=== PATIENT | male | born 1965 | race Caucasian/White ===

== ENCOUNTER → 2023-04-20 13:38 | Outpatient (REF) | payer OTHER, SELFPAY | LOC: HWRAD 13:38 | PROVIDERS: ATTENDING PHYSICIAN Internal Medicine Hematology & Oncology; FAMILY PHYSICIAN Physician Assistant Medical | DX: C18.7 Malignant neoplasm of sigmoid colon (principal); Z51.11 Encounter for antineoplastic chemotherapy | CPT/HCPCS: 71260; 74177; Q9967 ==

== ENCOUNTER → 2023-04-23 15:21 | Outpatient (REF) | payer OTHER, SELFPAY ==
[2023-04-23 13:51] LABS: % Basophils 0.3 % (0-2); % Immature Granulocytes 1.6 % (0-0.5); % Lymphocytes 14.7 % (20.5-51.1); % Monocytes 11.4 % (1.7-9.3); Absolute Eosinophils 0.4 10^3/uL (0-0.7); Absolute Immature Granulocytes 0.1 10^3/uL (0-0.05); Absolute Lymphocytes 1.1 10^3/uL (1.2-3.4); Absolute Monocytes 0.8 10^3/uL (0.1-0.6); Absolute Neutrophils 4.8 10^3/uL (1.4-6.5); Hemoglobin 13.8 g/dL (13.0-18.0); Mean Corp Hgb Conc. 34.5 g/dL (33.0-37.0); Mean Corpuscular Hgb 33.7 pg (27.0-31.0); Mean Corpuscular Volume 97.6 fL (80.0-94.0); Mean Platelet Volume 9.9 fL (7.4-10.4); Platelet Count 114 10^3/uL (130-400); Red Cell Dist. Width 15.2 % (11.5-14.5); White Blood Cell Count 7.3 10^3/uL (4.8-10.8)
== END ==
LOC: OIDL 15:21
PROVIDERS: ATTENDING PHYSICIAN Internal Medicine Hematology & Oncology
DX: C18.7 Malignant neoplasm of sigmoid colon (principal)
CPT/HCPCS: 85025

== ENCOUNTER → 2023-11-02 13:45 | Outpatient (REF) | payer OTHER, SELFPAY ==
[2023-11-02 13:05] LABS: % Basophils 0.5 % (0-2); % Eosinophils 3.1 % (0-6); % Immature Granulocytes 2.3 % (0-0.5); % Lymphocytes 7.9 % (20.5-51.1); % Monocytes 9.8 % (1.7-9.3); % Neutrophils 76.4 % (42.2-75.2); Absolute Eosinophils 0.3 10^3/uL (0-0.7); Absolute Immature Granulocytes 0.2 10^3/uL (0-0.05); Absolute Lymphocytes 0.7 10^3/uL (1.2-3.4); Absolute Monocytes 0.9 10^3/uL (0.1-0.6); Absolute Neutrophils 6.7 10^3/uL (1.4-6.5); Hematocrit 23.4 % (39.0-52.0); Hemoglobin 7.5 g/dL (13.0-18.0); Mean Corp Hgb Conc. 32.1 g/dL (33.0-37.0); Mean Corpuscular Hgb 29.4 pg (27.0-31.0); Mean Corpuscular Volume 91.8 fL (80.0-94.0); Mean Platelet Volume 10.3 fL (7.4-10.4); Nucleated Red Blood Cells % 0 % (-); Platelet Count 317 10^3/uL (130-400); Red Blood Cell Count 2.55 10^6/uL (4.70-6.10); Red Cell Dist. Width 17.6 % (11.5-14.5); White Blood Cell Count 8.8 10^3/uL (4.8-10.8)
[2023-11-02 13:11] LABS: ALT (SGPT) 19 U/L (0-50); AST (SGOT) 38 U/L (17-59); Albumin 3.6 g/dl (3.5-5.0); Alkaline Phosphatase 179 U/L (38-126); Blood Urea Nitrogen 56 mg/dl (9-20); Calcium 9.9 mg/dl (8.4-10.2); Carbon Dioxide 19 mmol/L (22-30); Chloride 104 mmol/L (98-107); Glucose 108 mg/dl (70-99); Sodium 138 mmol/L (135-145); Total Bilirubin 0.8 mg/dl (0.2-1.3); Total Protein 6.9 g/dl (6.3-8.2); eGFR 28.69
== END ==
LOC: OIDL 13:45
PROVIDERS: ATTENDING PHYSICIAN Nurse Practitioner Family
DX: C18.7 Malignant neoplasm of sigmoid colon (principal)
CPT/HCPCS: 80053; 85025; 86850; 86900; 86901; 86920

== ENCOUNTER 2023-11-03 09:13 | Outpatient (RCR) | payer OTHER, SELFPAY ==
[2023-11-03 09:30] VITALS: BP 107/69
[2023-11-03 09:57] VITALS: BP 107/69
[2023-11-03 10:15] VITALS: BP 100/59
[2023-11-03 10:26] LABS: Iron 33 ug/dl (49-181)
[2023-11-03 10:37] LABS: Percent Saturation 15 % (20-50); Total Iron Binding Capacity 213 ug/dl (261-462)
[2023-11-03 11:29] LABS: Folate 9.9 ng/ml (2.76-20)
[2023-11-03 11:46] VITALS: BP 102/64
[2023-11-03 12:33] LABS: Vitamin B12 716 pg/ml (239-931)
== END 2023-11-07 23:59 | disposition home or self-care (01) ==
LOC: OID 09:13
PROVIDERS: ATTENDING PHYSICIAN Internal Medicine Hematology & Oncology; FAMILY PHYSICIAN Physician Assistant Medical
DX: D50.9 Iron deficiency anemia, unspecified (principal); C18.7 Malignant neoplasm of sigmoid colon
CPT/HCPCS: 36430; 82607; 82728; 82746; 83540; 83550; 86850; 86900; 86901; 86920; P9016

== ENCOUNTER → 2023-11-03 12:04 | Outpatient (REF) | payer OTHER, SELFPAY ==
[2023-11-03 12:30] VITALS: BP 103/69; BP_SYST 79
[2023-11-03 14:05] VITALS: BP 106/71; BP_SYST 82
[2023-11-03 14:15] VITALS: BP 114/65; BP_SYST 81
[2023-11-03 15:10] VITALS: BP 114/65
--- NOTE | 2023-11-03 15:14 | PTCARENOTE ---
IRAD note: patient sent to ER per [facility] [employer] Miesha Israel's request for albumin infusion post large volume (8450ml) paracentesis. updated at bedside. Report given to ER Triage nurse Mary Anne.
[2023-11-03 15:18] LABS: Body Fluid Mononuclear 40.8 %; Body Fluid Polymorphonuclear 59.2 %; Body Fluid WBC 1844 /CUMM
[2023-11-03 15:35] LABS: Body Fluid Second Tech LD
== END ==
LOC: RADI 12:04
PROVIDERS: ATTENDING PHYSICIAN Nurse Practitioner Family; FAMILY PHYSICIAN Physician Assistant Medical
DX: R18.8 Other ascites (principal); D50.9 Iron deficiency anemia, unspecified; C18.7 Malignant neoplasm of sigmoid colon; R79.89 Other specified abnormal findings of blood chemistry
CPT/HCPCS: 36430; 49083; 80053; 82607; 82728; 82746; 83540; 83550; 86850; 86900; 86901; 86920; 89051; 96365; 99283; P9016; P9045

== ENCOUNTER 2023-11-03 14:54 | Emergency (ER) | payer OTHER, SELFPAY ==
[2023-11-03 14:59] VITALS: BP 100/54
--- NOTE | 2023-11-03 17:28 | ED.GENMED ---
History of Present Illness
General
Chief Complaint: Abdominal Symptoms
Time Seen by Provider: 11/03/23 16:30
History of Present Illness
History of Present Illness:
58-year-old male with history of colon cancer presenting to the emergency department for albumin infusion. Patient with colon cancer, status post paracentesis today and a blood transfusion. He was supposed to get albumin transfusion, however they
were unable to do so, subsequently sent to the ER for albumin. Patient notes that he feels a little bit shaky, has some generalized discomfort where the injection was at the paracentesis site, otherwise feels well. Denies chest pain, difficulty
breathing, fever. He is going to start chemotherapy tomorrow.
Past History
Past History
ED Past Medical History: None
ED Past Surgical History: None
Social History
Tobacco: Non-smoker
Alcohol: Occasional
Drug: None
Personal:
Living: with family
Phy Exam
Physical Exam
Physical Exam:
General: Well-appearing, no clinical signs of dehydration, nontoxic and in no acute distress
HEENT: protecting airway
Neck: appears supple
CV: Normal heart rate, regular rhythm, no evidence of cyanosis
Resp: No accessory muscle use, no increased work of breathing
Abd: Soft and non-distended, no tenderness to palpation
Extremities: No deformities, no swelling, no erythema
Neuro: alert, no focal neurologic deficit
: deferred
Rectal: deferred
Psych: Normal affect
Skin: Intact
Course
Orders/Labs/Results
Orders:
Orders
11/03/23 17:16
Acetaminophen [Tylenol] 1,000 mg PO NOW STA
Albumin Human 5% 250 ml [Albumin 5%] 12.5 grams in 250 ml IV ONCE
11/03/23 18:22
Comprehensive Metabolic Panel Urgent
Abnormal Lab Results
11/03/23
18:22
Carbon Dioxide 19 L mmol/L
(22-30)
BUN 51 H mg/dl
(9-20)
Creatinine 1.9 H mg/dL
(0.7-1.3)
Glucose 141 H mg/dl
(70-99)
Alkaline Phosphatase 157 H U/L
(38-126)
Total Protein 6.1 L g/dl
(6.3-8.2)
Albumin 3.1 L g/dl
(3.5-5.0)
11/03/23 18:22
Vital Signs
Initial and Last Documented VS:
Initial Vital Signs
Temp Pulse Resp BP Pulse Ox
97.8 F 85 18 100/54 99
11/03/23 14:59 11/03/23 14:59 11/03/23 14:59 11/03/23 14:59 11/03/23 14:59
Last Documented Vital Signs
Temp Pulse Resp BP Pulse Ox
98 F 85 18 100/54 99
11/03/23 16:24 11/03/23 14:59 11/03/23 14:59 11/03/23 14:59 11/03/23 14:59
MDM/Problems Addressed
MDM/Problems Addressed:
58-year-old male with history of colon cancer presenting for albumin infusion, due to start chemotherapy tomorrow. Vital signs are normal.
On exam, patient is well-appearing, no acute distress or discomfort. Patient had a 8.5 L of fluid drained from his abdomen today, ascites. He also had a blood transfusion. Only sent for albumin infusion. Will obtain laboratory analysis and start
albumin. Patient requesting Tylenol. Will administer. Otherwise patient hemodynamically stable.
19:30 -albumin near finish completion. Patient remained stable. Patient has elevated creatinine, however does not appear to be a new finding. Feel stable for discharge with continued outpatient oncologic follow-up. Return precautions discussed.
*Critical Care Note
Total Time (30-74mins, 75-104mins- exclusive of procedures): Not Applicable
ED Attending Note
-
Portions of this chart may have been created with voice recognition software.� Occasional wrong word or��sound alike� substitutions may have occurred due to the inherent limitations of voice recognition software.
Discharge Plan
Departure
Prescriptions:
No Action
finasteride [Propecia] 1 MG tablet
1 mg PO DAILY
gabapentin 300 mg Capsule
300 mg PO DAILY
lisinopril 10 mg Tablet
10 mg PO DAILY
baclofen 5 mg Tablet
5 mg PO DAILY
Referrals:
Rico Ngo MD [Family Provider] -
Interventions
Interventions:
KR-Zjjngl-Navhkkgeys Assessment Last Done: 11/03/23 16:30
Discharge Date and Time
Print Language: MALTESE
[2023-11-03] MEDS: TYLENOL 1000 MG PO (17:35)
[2023-11-03] MEDS: ALBUMIN 5% 250 IV (18:20)
[2023-11-03 18:44] LABS: ALT (SGPT) 16 U/L (0-50); AST (SGOT) 34 U/L (17-59); Albumin 3.1 g/dl (3.5-5.0); Alkaline Phosphatase 157 U/L (38-126); Blood Urea Nitrogen 51 mg/dl (9-20); Carbon Dioxide 19 mmol/L (22-30); Chloride 106 mmol/L (98-107); Glucose 141 mg/dl (70-99); Potassium 4.5 mmol/L (3.5-5.1); Sodium 138 mmol/L (135-145); Total Protein 6.1 g/dl (6.3-8.2); eGFR 39.89
[2023-11-03 19:41] VITALS: BP 112/72
== END 2023-11-03 19:55 | disposition home or self-care (01) ==
LOC: EMR 14:54
PROVIDERS: EMERGENCY PHYSICIAN Student in an Organized Health Care Education/Training Program; FAMILY PHYSICIAN Family Medicine
DX: R79.89 Other specified abnormal findings of blood chemistry (principal); C18.9 Malignant neoplasm of colon, unspecified; R18.8 Other ascites
CPT/HCPCS: 80053; 96365; 99283; P9045

== ENCOUNTER → 2023-11-06 13:50 | Outpatient (REF) | payer OTHER, SELFPAY ==
[2023-11-06 15:16] LABS: % Basophils 0.1 % (0-2); % Immature Granulocytes 0.4 % (0-0.5); % Lymphocytes 3.8 % (20.5-51.1); % Monocytes 3.4 % (1.7-9.3); % Neutrophils 92.3 % (42.2-75.2); Absolute Immature Granulocytes 0.1 10^3/uL (0-0.05); Absolute Lymphocytes 0.5 10^3/uL (1.2-3.4); Absolute Monocytes 0.4 10^3/uL (0.1-0.6); Absolute Neutrophils 11.2 10^3/uL (1.4-6.5); Hematocrit 23.5 % (39.0-52.0); Hemoglobin 7.9 g/dL (13.0-18.0); Mean Corp Hgb Conc. 33.6 g/dL (33.0-37.0); Mean Corpuscular Hgb 29.4 pg (27.0-31.0); Mean Corpuscular Volume 87.4 fL (80.0-94.0); Nucleated Red Blood Cells % 0 % (-); Platelet Count 356 10^3/uL (130-400); Red Blood Cell Count 2.69 10^6/uL (4.70-6.10); White Blood Cell Count 12.1 10^3/uL (4.8-10.8)
[2023-11-06 15:26] LABS: ALT (SGPT) 19 U/L (0-50); AST (SGOT) 33 U/L (17-59); Albumin 3.3 g/dl (3.5-5.0); Alkaline Phosphatase 175 U/L (38-126); Blood Urea Nitrogen 80 mg/dl (9-20); Calcium 8.8 mg/dl (8.4-10.2); Carbon Dioxide 18 mmol/L (22-30); Chloride 102 mmol/L (98-107); Glucose 116 mg/dl (70-99); Potassium 5.3 mmol/L (3.5-5.1); Sodium 137 mmol/L (135-145); Total Bilirubin 0.6 mg/dl (0.2-1.3); Total Protein 6.3 g/dl (6.3-8.2); eGFR 21.34
== END ==
LOC: OIDL 13:50
PROVIDERS: ATTENDING PHYSICIAN Internal Medicine Hematology & Oncology
DX: C18.7 Malignant neoplasm of sigmoid colon (principal); Z51.11 Encounter for antineoplastic chemotherapy; E87.6 Hypokalemia; N39.0 Urinary tract infection, site not specified; C79.51 Secondary malignant neoplasm of bone
CPT/HCPCS: 80053; 85025

== ENCOUNTER 2023-11-08 16:23 | Inpatient (IN) | payer OTHER, SELFPAY ==
[2023-11-08 12:28] VITALS: BP 113/67
[2023-11-08 13:00] VITALS: BMI 26.6
[2023-11-08] MEDS: ZOFRAN 4 MG IV ×4 (13:18→22:21)
[2023-11-08] MEDS: NSS 1000 IV (13:18)
[2023-11-08 13:22] LABS: ALT (SGPT) 15 U/L (0-50); AST (SGOT) 36 U/L (17-59); Albumin 3.1 g/dl (3.5-5.0); Alkaline Phosphatase 175 U/L (38-126); Blood Urea Nitrogen 69 mg/dl (9-20); Calcium 8.6 mg/dl (8.4-10.2); Carbon Dioxide 20 mmol/L (22-30); Chloride 103 mmol/L (98-107); Estimated Creatinine Clearance 44 ml/min; Glucose 116 mg/dl (70-99); Lipase 48 U/L (23-300); Potassium 4.8 mmol/L (3.5-5.1); Sodium 135 mmol/L (135-145); Total Bilirubin 0.8 mg/dl (0.2-1.3); Total Protein 5.9 g/dl (6.3-8.2)
[2023-11-08 13:46] LABS: Hematocrit 22.1 % (39.0-52.0); Hemoglobin 7.3 g/dL (13.0-18.0); Mean Corpuscular Hgb 29.3 pg (27.0-31.0); Mean Corpuscular Volume 88.8 fL (80.0-94.0); Mean Platelet Volume 9.5 fL (7.4-10.4); Platelet Count 179 10^3/uL (130-400); Red Blood Cell Count 2.49 10^6/uL (4.70-6.10); Red Cell Dist. Width 16.1 % (11.5-14.5); White Blood Cell Count 24.4 10^3/uL (4.8-10.8)
--- NOTE | 2023-11-08 13:47 | ED.GENMED ---
History of Present Illness
General
Chief Complaint: Abdominal Symptoms
Source: patient and spouse
Exam Limitations: none
Time Seen by Provider: 11/08/23 12:41
Nursing documentation reviewed up to this point in time: agreed with
History of Present Illness
History of Present Illness:
Patient currently being treated with chemotherapy for metastatic colon cancer, presents to ED secondary to inability to keep anything down over the past 5 days. Denies fever or chills. Denies coughing. Denies diarrhea. Denies rash. Denies
headache. Denies dizziness. Patient has received normal saline infusion after recent chemo treatment, without improvement symptoms.
Past History
Past History
ED Past Medical History: None
ED Past Surgical History: None
Social History
Tobacco: Non-smoker
Alcohol: Occasional
Drug: None
Personal:
Living: with family
Review of Systems
Review of Systems
Allergies reviewed?: Yes
All Other Systems: ROS reviewed and negative except as documented in HPI and ROS
Constitutional: Reports no symptoms; Denies fever or chills
Respiratory: Reports no symptoms; Denies cough
Cardiac: Reports no symptoms; Denies chest pain
ABD/GI: Reports nausea and vomiting; Denies abdominal pain or diarrhea
Skin: Reports no symptoms
Neurological: Reports weakness
Phy Exam
Physical Exam
Physical Exam:
Physical Exam
General: mild distress, not acutely ill. afebrile
Head: nc/at. eomi
Neck: supple. no meningeal signs.
Heart: s1/s2 regular rate and rhythm, no murmur. equal radial pulses.
Lungs: no acute respiratory distress. clear bilaterally
Abdomen: normal bowel sounds. not tender. no distention
Neuro: alert and oriented. no focal neurological deficits
Skin: no rash
Psychiatric: well kept. interactive and cooperative
Extremities: no edema. no calf tenderness.
Course
Orders/Labs/Results
Orders:
Orders
11/08/23 13:03
Complete Blood Count/With Diff Urgent
Comprehensive Metabolic Panel Urgent
Lipase Urgent
Magnesium Urgent
Comment: ADD ON
11/08/23 13:10
Add On- LAB Urgent
Tests Added?: magnesium
0.9% Sodium Chloride 1000 ml [Nss] 1,000 ml IV BOLUS
Ondansetron Injectable [Zofran] 4 mg IV NOW STA
11/08/23 13:50
CR Obstruct Series W/pa Chest Urgent
Comment:
Reason For Exam: vomiting
11/08/23 14:20
Ondansetron Injectable [Zofran] 4 mg .ROUTE .STK-MED ONE
11/08/23 14:21
Ondansetron Injectable [Zofran] 4 mg IV NOW STA
11/08/23 15:37
Electrocardiogram (*1) Urgent
Reason for Study: QTc Monitoring
EKG- Treatment ONCE
Ondansetron Injectable [Zofran] 4 mg IV NOW STA
11/08/23 16:06
Admit/Transfer Patient As Directed
Co-Sign Provider:
Level of Care: Inpatient admission
Assign to:: Medical/Surgical
Physician / Group: Delfino
Transfer to: Medical/Surgical
Diagnosis: HARMONY/Inability to tolerate PO
Reason for Hospitalization: HARMONY/Inability to tolerate PO
Expected length of stay greater than two midnights?: Yes
ELOS- Estimated Length of Stay in days: 2
I certify the patient meets the requirements for IP care: Yes
PRN Pain Medication Management As Directed
May give lesser potent ordered pain med per pt: Yes
preference::
Protocol:: Medication orders for pain may be administered in a
manner that supports deferring to patient preference
when the pt is:
- Requesting an ordered lesser potent pain medication.
Least to most potent pain medications are defined
as: acetaminophen < NSAID < tramadol < opioids
(morphine, oxycodone, hydromorphone).
- Requesting a lesser dose of the same medication IF
ORDERED.
- Requesting a less intrusive route of administration
if both routes are prescribed by the provider (PO <
IV).
11/08/23 16:08
Code Status As Directed
Resuscitation Status: Limited DNR
Limited DNR: -No intubation
11/08/23 16:13
ONCOLOGY CONSULT Routine
Consulting Provider: Meagan Ramsey
Was physician already notified: Yes
Reason for consult: metastatic colon ca
11/08/23 16:18
NEPHROLOGY CONSULT Routine
Consulting Provider: Floyd Black V.
Was physician already notified: Yes
Reason for consult: HARMONY
11/08/23 17:33
Acetaminophen [Tylenol] 650 mg PO Q4HPRN PRN
Albuterol Nebs [Ventolin Nebules] 2.5 mg INH R Q4HPRN PRN
Baclofen [Lioresal] 5 mg PO DAILY PRN
Bisacodyl [Dulcolax] 10 mg RECTAL [id number] PRN
Dextrose 5%/0.45%Sodchl 1000ML [D5/0.45%NaCl] 1,000 ml IV 80 mls/hr
Docusate W/Senna [Senokot-S] 1 tablet PO BIDPRN PRN
Polyethylene Glycol Powder [Miralax] 17 grams PO DAILYPRN PRN
11/08/23 17:33
Respiratory Culture/Gram Stain Urgent
ARSALAN Source: Sputum
Specimen Description:
Activity As Directed
Activity Level: As Tolerated
Intake/ Output As Directed
Frequency: Per unit guidelines
Vital Signs As Directed
Frequency: Per unit guidelines
Weight As Directed
Frequency: Daily
Pt Eval And Treat Routine
Activity Level: As Tolerated
DX Deep Vein Thrombosis Video Routine
11/08/23 18:15
Blood Culture Urgent
ARSALAN Source: Blood/Venous
Specimen Description:
11/08/23 18:35
Urinalysis Reflex To Culture Stat
Date Specimen was Collected: 11/08/23
Time Specimen was Collected: 18:06
Urine Creatinine Urgent
Date Specimen was Collected: 11/08/23
Time Specimen was Collected: 18:07
Urine Osmolality Random [Osmolality, Random Urine] Urgent
Date Specimen was Collected: 11/08/23
Time Specimen was Collected: 18:07
Urine Sodium Routine
Date Specimen was Collected: 11/08/23
Time Specimen was Collected: 18:07
11/08/23 18:56
Blood Culture Routine
ARSALAN Source: Blood/Venous
Specimen Description:
11/08/23 21:46
Ondansetron Injectable [Zofran] 4 mg IV Q6HPRN PRN
11/09/23 Breakfast
Regular
At Your Request: Full Participation
Basic Metabolic Panel IN AM
Complete Blood Count/With Diff IN AM
Ferritin IN AM
Iron IN AM
Magnesium IN AM
Total Iron Binding IN AM
11/09/23 08:00
Calcium Carbonate [Oscal Andrew 500] 500 mg PO DAILY
Heparin 5,000 units SC Q8
Multivitamin [Theragran] 1 tablet PO DAILY
finasteride [Propecia] See Dose Instructions PO DAILY
Abnormal Lab Results
11/08/23
13:03
WBC 24.4 H 10^3/uL
(4.8-10.8)
RBC 2.49 L 10^6/uL
(4.70-6.10)
Hgb 7.3 L g/dL
(13.0-18.0)
Hct 22.1 L %
(39.0-52.0)
RDW 16.1 H %
(11.5-14.5)
Abs Immat Gran (auto) 2.3 H 10^3/uL
(0-0.05)
Absolute Neuts (auto) 21.4 H 10^3/uL
(1.4-6.5)
Absolute Lymphs (auto) 0.5 L 10^3/uL
(1.2-3.4)
Immature Gran % 9.3 H %
(0-0.5)
Neutrophils % 87.5 H %
(42.2-75.2)
Lymphocytes % 1.9 L %
(20.5-51.1)
Monocytes % 0.9 L %
(1.7-9.3)
Carbon Dioxide 20 L mmol/L
(22-30)
BUN 69 H mg/dl
(9-20)
Creatinine 2.0 H mg/dL
(0.7-1.3)
Glucose 116 H mg/dl
(70-99)
Magnesium 2.6 H mg/dl
(1.6-2.3)
Alkaline Phosphatase 175 H U/L
(38-126)
Total Protein 5.9 L g/dl
(6.3-8.2)
Albumin 3.1 L g/dl
(3.5-5.0)
11/08/23 13:03
11/08/23 13:03
Vital Signs
Initial and Last Documented VS:
Initial Vital Signs
Temp Pulse Resp BP Pulse Ox
98.0 F 79 16 113/67 98
11/08/23 12:28 11/08/23 12:28 11/08/23 12:28 11/08/23 12:28 11/08/23 12:28
Last Documented Vital Signs
Temp Pulse Resp BP Pulse Ox
99 F 78 18 110/66 97
11/08/23 23:56 11/08/23 23:56 11/08/23 23:56 11/08/23 23:56 11/08/23 23:56
MDM/Problems Addressed
MDM/Problems Addressed:
Patient with persistent nausea sensation despite treatment, along with clinical concern for significant dehydration, due to poor oral intake, raising possibility of chemo treatment complications. Patient will be admitted for further evaluation and
treatment.
*Critical Care Note
Total Time (30-74mins, 75-104mins- exclusive of procedures): Not Applicable
ED Attending Note
-
Portions of this chart may have been created with voice recognition software.� Occasional wrong word or��sound alike� substitutions may have occurred due to the inherent limitations of voice recognition software.
Discharge Plan
Departure
Patient Disposition: Admit
Date of Disposition: 11/08/23
Time of Disposition: 15:38
Presentation/result/management discussed w/ accepting MD/DO: Hospitalist
Discharge Problem:
Intractable nausea and vomiting, Dehydration
Interventions
Interventions:
*Risk Screen - Suicide Last Done: 11/08/23 16:54
*General Assessment Last Done: 11/08/23 17:33
*Neglect/Abuse Screening Last Done: 11/08/23 16:54
*Nursing Disposition Last Done: 11/08/23 17:33
OK-Gjijuz-Gfmfxgqykp Assessment Last Done: 11/08/23 15:00
Discharge Date and Time
Discharge Date/Time: 11/08/23 17:33
[2023-11-08 14:18] LABS: % Basophils 0.2 % (0-2); % Eosinophils 0.2 % (0-6); % Immature Granulocytes 9.3 % (0-0.5); % Lymphocytes 1.9 % (20.5-51.1); % Monocytes 0.9 % (1.7-9.3); % Neutrophils 87.5 % (42.2-75.2); Absolute Immature Granulocytes 2.3 10^3/uL (0-0.05); Absolute Lymphocytes 0.5 10^3/uL (1.2-3.4); Absolute Monocytes 0.2 10^3/uL (0.1-0.6); Absolute Neutrophils 21.4 10^3/uL (1.4-6.5); Nucleated Red Blood Cells % 0 % (-)
[2023-11-08 14:26] LABS: Magnesium 2.6 mg/dl (1.6-2.3)
[2023-11-08 14:28] VITALS: BP 113/72
--- NOTE | 2023-11-08 15:47 | HPS.HSE ---
Family Physician
-
Family Physician: Eufemia Medina
Chief Complaint
-
Inability to tolerate PO x 5 days
History of Present Illness
58yo M with PMH Metastatic Colon Ca to Lungs and Liver, Anemia, Neuropathy, HTN, Allopecia presents to ER with inability to tolerate PO x 5 days. at bedside aiding in HPI. Pt states he has been feeling weak with complete inability to tolerate
PO. On thursday he was seen in cancer center and given IVF. On Thursday found to be anemic and given 1u PRBC. Pt then received chemotherapy with new agent on Thursday via [facility]. The following day had a paracentesis with 8L drained and short interval ER
evaluation for Albumin infusion. Pt reports mild bloating but no worsening of abd pain. +chills. Also endorses a cough that pt suspects is because he cant clear his mucous. Does report over the last 1 month he has had treatment of UTI completing a
2nd course of abx about 10 days ago (now denies any frequency or dysuria). +dizziness. Denies fever, sick contacts, CP, palps, Wheezing, dysuria, calf or leg pain. Denies bloody or black stools or bloody emesis.
ER course: Pt presents HR 105-.72, other V.S.S. WBC 24.4K, Hgb 7.3 g/dL, BUN/Cr 69/2.0. Obstruction series (-). S/P 4mg IV zofran x 3 and 1LNS bolus in ER.
Medical History
Past Medical History
Past Medical History: Reports Other (Metastatic Colon Colon Ca (lungs, liver), Neuropathy, HTN, Allopecia)
Past Surgical History: Reports Other (Paracentesis, Port placement 07/2020)
Social History
Tobacco: Non-smoker
Alcohol: Occasional (infrequent, social)
Drug: None
Personal:
Living: With Family
Family History
Family History: Other (Mother and Father both in 90s with known history. )
Allergies / Home Medications
Allergies reflects when Allergies were last updated in [facility].
Home Medications with original date entered in [facility]
Allergy/Medication List:
Allergies
Allergy/AdvReac Type Severity Reaction Status Date / Time
No Known Allergies Allergy Verified 11/08/23 12:30
Home Medications
finasteride 1 mg tablet (Propecia) 1 mg PO DAILY HAIR GROWTH 07/03/20
gabapentin 300 mg capsule 600 mg PO BID 11/03/23
lisinopril 10 mg tablet 10 mg PO DAILY 11/03/23
Unknown Nausea Med 1 tab PO PRN PRN nausea 11/08/23
baclofen 5 mg tablet 5 mg PO DAILY PRN Hiccups 11/08/23
calcium carbonate 500 mg PO DAILY 11/08/23
ibuprofen 200 mg tablet (Advil) 400 mg PO Q6HPRN PRN mild pain 11/08/23
therapeutic multivitamin 1 tab PO DAILY 11/08/23
Review of Systems
-
A 12 point ROS was completed and negative except as noted: Yes
Physical Exam
Vital Signs
Vital Signs
Temp Pulse Resp BP Pulse Ox
98.0 F 72 16 113/72 98
11/08/23 12:28 11/08/23 14:28 11/08/23 14:28 11/08/23 14:28 11/08/23 14:28
Physical Exam
General: Well Developed, Well Nourished and No Apparent Distress
HEENT: NormoCephalic, Atraumatic and Other (Dry MM, no evidence of thrush); No Neck Nontender or Neck Mass
Respiratory: Clear
Cardiac: S1/S2, Regular Rhythm and Other (Right CWP ); No Murmur or Rub
GI: Soft, Normal Bowel Sounds and Other (+minimal distention. Mild diffuse ttp, no rebound or guarding. ); No Organomegaly
Rectal: Deferred by Provider
Genito-urinary: No costovertebral tender; No Hilliard
Musculoskeletal: No Clubbing, No Cyanosis and No Edema
Skin: Warm and Dry; No Rash
Neuro: Awake, Alert, Oriented, AO x 3, No Motor Deficits and Nonfocal/grossly intact
Psych: Calm
Laboratory Results
-
11/08/23 13:03
11/08/23 13:03
Laboratory Results
Total Bilirubin 0.8 mg/dl (0.2-1.3) 11/08/23 13:03
AST 36 U/L (17-59) 11/08/23 13:03
ALT 15 U/L (0-50) 11/08/23 13:03
Alkaline Phosphatase 175 U/L (38-126) H 11/08/23 13:03
Lipase 48 U/L (23-300) 11/08/23 13:03
Data Reviewed
-
Diagnostic Radiology: Image Personally Visualized and interpreted
Medical Tests (Nuc Med, Echo, EKG etc): Image Personally Visualized and interpreted
Lab Data: Labs Reviewed by me
Old Records: Reviewed
Impression/Plan
-
Inability to tolerate PO
- Inability to tolerate PO x 5 days with presenting HARMONY/Elevated BUN and recent chemotherapy (thursday)
- Obstruction series (-). LFTs without acute findings. Lipase wnl.
- S/P 1L NS bolus in ER. Will give additional 1L @ 80cc/hr, cautious hydration given recent need for paracentesis
- Supportive care. Antiemetics. Consider megace vs remeron
- Start PPI and observe for improvement
- Consider nutrition consult
- Consult Oncology
HARMONY
- BUN/Cr 69/2.0. Suspect BUN elevation likely contributing to inability to tolerate PO
- Unclear baseline. Cr 1.2 in 03/2023, denies known CKD or nephrology outpt followup
- Check urine studies and obtain US kidneys/bladder
- Bladder scan for completeness
- Suspect pre-renal dehydration. Cautious hydration. Consider change to albumin
- Hold nephrotoxics: NSAIDs/RUBINA-I/Gabapentin. Reports not taking these meds over last few days
Leukocytosis
- WBC 24.4K, afebrile
- Reports recent UTI for which he completed 2 rounds of abx, last 10 days (now denying symptoms)
- Repeat UA wtih reflex
- Obtain BC x 2
- Endorses some coughing, follow up Sputum culture - CXR NAD
- Monitor off abx
- Appreciate oncology recs
Microcytic Anemia
- Hgb 7.3 g/dL. Chronically microcytic. Reports receiving 1u PRBC 11/02
- Recent baseline appearing around 7-8 g/dL
- Denies any bloody or black stools though very limited BMs x 5 days
- Check iron studies
- Likely chemotherapy related
- Goal transfusion > 7.0
- Consult H/O
Metastatic Colon Cancer
- Last chemotherapy received Thursday
- Management per H/o
HTN - Reports not taking lisinopril in recent past.
Neuropathy - Gabapentin held 2/2 HARMONY. Pt reports not taking recently. Resume accordingly.
Allopecia - Cont finasteride.
Diet - Regular, as tolerated.
DVT PPx - Heparin SC
Code Status: Agreeable to CPR but not intubation.
[2023-11-08] MEDS: NSS (PRESERVATIVE FREE) 10 ML IV (17:16)
[2023-11-08] MEDS: PROTONIX IV 40 MG IV (17:16)
[2023-11-08 17:45] VITALS: BP 112/69
[2023-11-08 17:46] VITALS: BMI 26.4
[2023-11-08] MEDS: D5/0.45%NACL 1000 IV (18:21)
--- NOTE | 2023-11-08 18:36 | PTCARENOTE ---
Pt received from ED. Pt ambulated to the room with supervision. Nauseous on arrival, Zofran and Protonix given in ED. IVF started. at the bedside.
[2023-11-08 18:47] LABS: Urine Albumin Trace (Neg - Trace); Urine Bilirubin Negative (Negative); Urine Character Clear (Clear); Urine Color Yellow; Urine Glucose Negative (Negative); Urine Ketone Negative (Negative); Urine Leukocyte Negative (Negative); Urine Nitrite Negative (Negative); Urine Occult Blood 4+ (Negative); Urine Specific Gravity 1.015 (<1.030); Urine Urobilinogen Negative (Neg - 1+)
[2023-11-08 18:52] LABS: Osmolality Urine 474 mOsm/kg (300-900)
[2023-11-08 19:02] LABS: Urine Sodium 13 mmol/L (30-90)
[2023-11-08 19:06] LABS: Urine Bacteria Few (Negative)
[2023-11-08 19:07] LABS: Urine Red Blood Cell 16-20 /HPF (0-2)
[2023-11-08] MEDS: LIORESAL 5 MG PO (20:07)
[2023-11-08 23:56] VITALS: BP 110/66
[2023-11-09] MEDS: ZOFRAN 4 MG IV (05:59)
[2023-11-09 06:00] VITALS: BMI 26.7
--- NOTE | 2023-11-09 06:04 | PTCARENOTE ---
Pt awake intermittently t/o the night. Pt with continued complaints of nausea despite tolerating PO, drinking cups of water without difficulty. Pt denies any complaints of increased abd distention or discomfort. Pt reports just wanting to sleep. Pt
asked for sleeping pill, instructed to ask attending MD this am. Vital signs stable. Will continue to monitor.
[2023-11-09 07:00] VITALS: BP 111/66
[2023-11-09] MEDS: HEPARIN 5000 UNITS SC ×3 (08:49→23:24)
[2023-11-09] MEDS: PROTONIX IV 40 MG IV (08:52)
[2023-11-09] MEDS: NSS (PRESERVATIVE FREE) 10 ML IV (08:52)
[2023-11-09] MEDS: THERAGRAN 1 TABLET PO (08:52)
[2023-11-09] MEDS: OSCAL CAL 500 500 MG PO (08:52)
[2023-11-09] MEDS: LIORESAL 5 MG PO ×2 (09:02→15:23)
[2023-11-09 09:15] VITALS: BP 118/70; BP 121/68; PULSE 71
--- NOTE | 2023-11-09 09:20 | PTOTSP ---
Pt is independent with ambulation without need for any assistive device. No acute PT needs were identified. PT will sign off.
--- NOTE | 2023-11-09 11:06 | W.CON.NEPH ---
Consultation
-
Date/Time Consultation Requested: 11/09/2023 7:00 AM
Date/Time Consultation Performed: 11/09/2023 11:00
Requesting Provider: Dr. Latif
Performing Provider: Dr. Black
Reason for Consultation: Acute kidney injury
Medical History
-
Chief Complaint: Acute kidney injury
History of Present Illness:
The patient is a 58-year-old male with a past medical history of hypertension maintained on lisinopril. He has a history of metastatic colon cancer to lungs liver and spleen. He has significant neuropathy for which she is maintained on gabapentin.
He presented to the emergency room on 11/08/2023 due to the inability to tolerate p.o. over the past 5 days. He reported significant weakness. He also has had worsening anemia and over the past week had received a unit of blood directed at the
[facility]. He also received chemotherapy this past Thursday. The following day he had an 8 L paracentesis followed by albumin infusion. On presentation he reported mild bloating but no worsening of abdominal pain. He did report some
associated chills and cough. Over the past month he has had treatment for UTI and completed a second course of antibiotic therapy approximately 10 days ago. On presentation to the hospital he was noted to have a creatinine level of 2. Previous
review of his lab work revealed a creatinine of 3.2 on November 06, 2023 during his first emergency room visit. An earlier creatinine value was noted to be 1.9 on November 03, 2023. Prior to that his creatinine was noted to be 1.2 as of March 25,
2023. Urinalysis obtained from emergency room notes 4+ blood with trace albuminuria. His fractional excretion of sodium was consistent with a prerenal stimulus. We were consulted for acute kidney injury. He appears to be hemodynamically stable.
The patient admits to taking high doses of ibuprofen daily for his ongoing neuropathy.
Past Medical History
Metastatic colon cancer to lung liver spleen
Neuropathy
Hypertension
Recurrent ascites requiring paracentesis
Chronic kidney disease
Social History
Tobacco: Non-Smoker
Alcohol: Occasional
Family History
No CKD
Allergies / Home Medications
Allergy/AdvReac Type Severity Reaction Status Date / Time
No Known Allergies Allergy Verified 11/08/23 12:30
�Medication �Instructions �Recorded �Confirmed �Type
finasteride 1 mg tablet (Propecia) 1 mg PO DAILY HAIR GROWTH 07/03/20 11/08/23 History
gabapentin 300 mg capsule 600 mg PO BID neuropathy 11/03/23 11/08/23 History
lisinopril 10 mg tablet 10 mg PO DAILY Blood Pressure 11/03/23 11/08/23 History
Unknown Nausea Med 1 tab PO PRN PRN nausea 11/08/23 11/08/23 History
baclofen 5 mg tablet 5 mg PO DAILY PRN Hiccups 11/08/23 11/08/23 History
calcium carbonate 500 mg PO DAILY Supplement 11/08/23 11/08/23 History
ibuprofen 200 mg tablet (Advil) 400 mg PO Q6HPRN PRN mild pain 11/08/23 11/08/23 History
therapeutic multivitamin 1 tab PO DAILY Supplement 11/08/23 11/08/23 History
Review of Systems
-
History Source: Patient
All other systems: Negative unless noted
Constitutional: Fatigue, Chills and Other (Poor appetite)
Respiratory: No Symptoms
Abdomen/GI: Nausea, Vomiting, Anorexia and Other (Ongoing hiccups)
: No Symptoms
Musculoskeletal: No Symptoms
Skin: No Symptoms
Neurological: Other (Baseline neuropathy)
Physical Exam
Vital Signs
Vital Signs
Temp Pulse Resp BP Pulse Ox
98.3 F 79 16 111/66 100
11/09/23 07:00 11/09/23 07:00 11/09/23 07:00 11/09/23 07:00 11/09/23 07:00
Lab Results
eGFR 37.50 11/08/23 13:03
Albumin 3.1 g/dl (3.5-5.0) L 11/08/23 13:03
Physical Exam
General: AOx3, Nontoxic , NAD
HEENT: PERRL, EOMI, Anicteric, Conjunctivae Clear, Ear/Nose Intact, Hearing Normal, Oropharynx Clear/Moist, Dentition Intact, Facial Symmetry, Neck Supple, Neck: Trachea Midline, No JVD and No Thyromegaly, no Bruits
Respiratory: Clear to auscultation bilaterally with normal lung exersion
Cardiac: S1/S2 and Regular Rate/Rhythm
Breast: Deferred by me
Abdomen: Soft, Nontender, abdominal distention normal Bowel Sounds and No Hepatosplenomegalyj
Rectal: Deferred by Provider
Genito-urinary: No Costovertebral Tenderness
Extremities: No Clubbing, No Cyanosis and No Edema
Skin: No Rash or open lesions
Neuro: Nonfocal/Grossly Intact, CN II-XII (Intact) and Strength (Musculoskeletal exam 5 out of 5 both upper and lower extremities)
Hematologic/Lymphatic: No Cervical Lymphadenopathy, No Submandibular Lymphadenopathy and No Supraclavicular Lymphadenopathy
Psych: Mood/affect pleasant, Insight/judgement good and Appropriate
Vascular: plus 2 pedal and radial pulses
Data Reviewed
-
Radiology: Report Reviewed by me (Chest x-ray without evidence of congestive heart failure)
CT Scan: Report Reviewed by me (No obstructive uropathy, moderate bilateral renal disease)
Labs: Labs Reviewed by me ([facility] CBC urinalysis urine sodium urine creatinine)
Old Records: Reviewed (Old records reviewed in electronic medical record creatinine 1.2 as of March 15, 2023)
Assessment/Plan
-
Impression:
Failure to thrive
HARMONY
Metastatic colon cancer: Receiving active chemotherapy
Newly diagnosed bladder mass
Hypertension ( has not been taking lisinopril )
Anemia
Plan:
-FeNa appears consistent with pre renal stimulus
-Likely due to ongoing anemia poor p.o. intake nausea vomiting in setting of NSAID administration
-maintain IVFs
-hold NSAIDs and RUBINA
-no obstructive uropathy by CT
-Will eventually obtain and review chemotherapy regimen which was just initiated last week
[2023-11-09 12:16] LABS: Hematocrit 21.9 % (39.0-52.0); Hemoglobin 7.2 g/dL (13.0-18.0); Mean Corp Hgb Conc. 32.9 g/dL (33.0-37.0); Mean Corpuscular Hgb 29.1 pg (27.0-31.0); Mean Corpuscular Volume 88.7 fL (80.0-94.0); Mean Platelet Volume 9.7 fL (7.4-10.4); Platelet Count 167 10^3/uL (130-400); Red Blood Cell Count 2.47 10^6/uL (4.70-6.10); Red Cell Dist. Width 16.2 % (11.5-14.5); White Blood Cell Count 18.8 10^3/uL (4.8-10.8)
[2023-11-09 12:23] LABS: Blood Urea Nitrogen 51 mg/dl (9-20); Calcium 8.3 mg/dl (8.4-10.2); Carbon Dioxide 19 mmol/L (22-30); Chloride 103 mmol/L (98-107); Estimated Creatinine Clearance 68 ml/min; Glucose 124 mg/dl (70-99); Iron 82 ug/dl (49-181); Magnesium 2.5 mg/dl (1.6-2.3); Potassium 4.7 mmol/L (3.5-5.1); Sodium 133 mmol/L (135-145); eGFR > 60.00
[2023-11-09 12:32] LABS: Percent Saturation 44 % (20-50); Total Iron Binding Capacity 186 ug/dl (261-462)
--- NOTE | 2023-11-09 12:33 | W.PN.HOSP.TC ---
Today's Communication/Plan
-
see bold
Assessment / Plan
Assessment / Plan
Gen: NAD, AAOx3.
Eyes: EOMI, PERRLA, no scleral icterus.
Neck: supple.
CV: RRR, +S1/S2, no m/r/g.
Resp: CTAB, no rales, wheezes, or rhonchi.
Abd: +BS, soft, mild distention, ND
Skin: No rashes.
Neuro: CN 2-12 intact, non-focal.
Psych: Normal mood and affect.
Inability to tolerate PO
- Inability to tolerate PO x 5 days with presenting HARMONY/Elevated BUN and recent chemotherapy (11/04/23)
- Obstruction series (-). LFTs without acute findings. Lipase wnl.
- s/p 1L NS bolus in ER followed by maintenance fluids
- Supportive care. Antiemetics.
- start Remeron 7.5mg HS
- Start PPI and observe for improvement
- Consult Oncology and GI
HARMONY:
-resolved with IVFs
-renal following
-currently on NS with 75meq HCO3-/L @ 100cc/hr
Leukocytosis
- WBC 24.4K, afebrile
- Reports recent UTI for which he completed 2 rounds of abx, last 10 days (now denying symptoms)
- Repeat UA wtih reflex
- Obtain BC x 2
- Endorses some coughing, follow up Sputum culture - CXR NAD
- Monitor off abx
Microcytic Anemia:
-likely due to chemotherapy
-transfuse for Hb < 7
- Hgb 7.3 g/dL. Chronically microcytic. Reports receiving 1u PRBC 11/02
- Recent baseline appearing around 7-8 g/dL
- Denies any bloody or black stools though very limited BMs x 5 days
- Check iron studies
- Likely chemotherapy related
- Goal transfusion > 7.0
- Consult H/O
Metastatic Colon Cancer: Last chemotherapy received 11/04/23.
Essential HTN: Reports not taking lisinopril in recent past.
Neuropathy: Gabapentin held due to HARMONY. Pt reports not taking recently.
Allopecia: Cont finasteride.
Pt's updated extensively at bedside. Case discussed with RN.
DVT PPx - Heparin SC
Code Status: Agreeable to CPR but not intubation.
Total time spent on today's encounter was 50 minutes which included time spent in counseling the patient/family regarding diagnosis and treatment plan as listed above, goals of care, and symptom management. Case was discussed with nursing staff,
specialists, and care coordinators/case management. All labs and imaging personally reviewed by me. Remainder the time spent in detailed review of previous records, lab data, imaging, and other medical provider documentation.
Anticipated Discharge: 24 - 48 hours
Subjective/Interval History
-
Date of Service: November 09, 2023
No new complaints.
Objective Data
-
Labs:
Laboratory Results
11/09/23
11:53
WBC 18.8 H
Hgb 7.2 L
Hct 21.9 L
Plt Count 167
Sodium 133 L
Potassium 4.7
Chloride 103
Carbon Dioxide 19 L
BUN 51 H
Creatinine 1.3
Glucose 124 H
Calcium 8.3 L
Vital Signs:
Vital Signs
Temp Pulse Resp BP Pulse Ox
98.3 F 79 16 111/66 100
11/09/23 07:00 11/09/23 07:00 11/09/23 07:00 11/09/23 07:00 11/09/23 08:10
I&O
11/08/23 11/09/23 11/10/23
06:59 06:59 06:59
Intake Total 2400 / 2400
Output Total 875 / 875
Balance 1525 / 1525
[2023-11-09 12:39] LABS: Absolute Neutrophils -Man Diff 16.1 10^3/uL (1.4-6.5); Band Neutrophils 5 % (0-3); Eosinophils 3 % (0-6); Lymphocytes 8 % (20-51); Metamyelocytes 2 % (-); Myelocytes 1 % (-); Segmented Neutrophils 81 % (42-75)
[2023-11-09 12:40] LABS: Anisocytosis Slight; Hypochromasia 1+; Normal RBC Morphology No; Platelets Checked Yes; Total Cells Counted 100
[2023-11-09] MEDS: SODIUM BICARBONATE 1075 MEQ IV ×2 (12:46→21:57)
[2023-11-09 14:44] VITALS: BMI 26.7
[2023-11-09 15:00] VITALS: BP 119/72
--- NOTE | 2023-11-09 15:58 | W.PN.UPDATE ---
Update Note
Progress Note Update
58 yo man with hx rectal cancer, recently with anastomotic recurrence in setting of indolent low-volume met dz.
He recently completed chemo/RT but was recently found to have progression in lungs, ribs, liver and presumably peritoneum as he required therapeutic paracentesis last week for 8.5L.
He has also been requiring IVF's in the office.
He started FOLFIRI 11/03 with Neulasta 11/05.
His call the service yesterday to report intractable coughing and intolerance of PO's.
Today feeling a bit better but requests increase in anti-reflux meds as symptoms are severe.
A/P:
Met colorectal cancer
Ascites presumed malignant
Chemo-assoc nausea/vomiting
Severe reflux symptoms
Cough with normal CXR and O2 sat, suspect reflux related.
Plan: added H2 germán to PPI. Seems to have adequate anti-emetic regimen.
Full consult to follow.
[2023-11-09] MEDS: PEPCID 40 MG PO ×2 (16:55→20:29)
[2023-11-09 20:44] LABS: Hepatitis C Antibody Negative (Negative)
[2023-11-09] MEDS: REMERON 7.5 MG PO (21:57)
[2023-11-09] MEDS: MELATONIN 5 MG PO (21:57)
--- NOTE | 2023-11-09 22:45 | CON.ONC ---
Impression
Impression
Met colorectal cancer
Ascites presumed malignant
Chemo-assoc nausea/vomiting
Severe reflux symptoms
Cough with normal CXR and O2 sat, suspect reflux related.
Plan
Plan
No evidence of obstruction on obstruction series.
Continue supportive care. Seems to have adequate anti-emetic regimen.
Added H2 germán to PPI.
Gentle IVF's in setting of ascites requiring large-volume paracentesis 11/02.
Thank you for consult, will follow along with you.
Patient History
History of Present Illness
58 yo man with hx rectal cancer, recently with anastomotic recurrence in setting of indolent low-volume met dz. Plan was for chemo/RT followed by resection of anastomotic recurrence. He completed chemo/RT but was then found to have progression in
lungs, ribs, liver and presumably peritoneum as he required therapeutic paracentesis last week for 8.5L on 11/02. Plans for surgery were aborted and he was returned to us for systemic therapy. He started FOLFIRI 11/03 with Neulasta 11/05. His
call the service yesterday to report intractable coughing and intolerance of PO's. Today feeling a bit better but requests increase in anti-reflux meds as symptoms are severe. The reflux is his main complaint today. Tolerating clears. Obstruction
series on admission was unremarkable. O2 sat normal on RA.
Past-Medical/Surgical History
Medical History
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
HTN
Surgical History
Palliative laparoscopy 08/06/21
Port placement 07/2020
Social History
Tobacco: Non-smoker
Alcohol: Occasional (infrequent, social)
Drug: None
Personal:
Living: With Family
Family History
No family hx GI malignancies
Patient Medication
�Medication �Instructions �Recorded �Confirmed �Last Taken �Type
finasteride 1 mg tablet (Propecia) 1 mg PO DAILY HAIR GROWTH 07/03/20 11/08/23 11/03/23 History
gabapentin 300 mg capsule 600 mg PO BID neuropathy 11/03/23 11/08/23 11/03/23 History
lisinopril 10 mg tablet 10 mg PO DAILY Blood Pressure 11/03/23 11/08/23 Unknown History
Unknown Nausea Med 1 tab PO PRN PRN nausea 11/08/23 11/08/23 Unknown History
baclofen 5 mg tablet 5 mg PO DAILY PRN Hiccups 11/08/23 11/08/23 Unknown History
calcium carbonate 500 mg PO DAILY Supplement 11/08/23 11/08/23 Unknown History
ibuprofen 200 mg tablet (Advil) 400 mg PO Q6HPRN PRN mild pain 11/08/23 11/08/23 Unknown History
therapeutic multivitamin 1 tab PO DAILY Supplement 11/08/23 11/08/23 Unknown History
Active Medications
Generic Name Dose Route Start Last Admin
Trade Name Freq PRN Reason Stop Dose Admin
Acetaminophen 650 mg 11/08/23 17:33
Acetaminophen 325 Mg Tablet PO 12/06/23 17:32
Q4HPRN PRN
mild pain/MEHTA/temp> 100.4F
Albuterol Sulfate 2.5 mg 11/08/23 17:33
Albuterol Nebs 2.5 Mg/3 Ml Ampul INH
R Q4HPRN PRN
shortness of breath
Protocol
Baclofen 5 mg 11/09/23 12:55 11/09/23 15:23
Baclofen 5 Mg Tablet PO 12/07/23 12:53 5 mg
TIDPRN PRN Administration
Hiccups
Bisacodyl 10 mg 11/08/23 17:33
Bisacodyl 10 Mg Rectal Suppository RECTAL 12/06/23 17:32
[id number] PRN
constipation
Calcium Carbonate 500 mg 11/09/23 08:00 11/09/23 08:52
Calcium Carbonate 500 Mg Tablet PO 12/07/23 07:59 500 mg
DAILY DINESH Administration
Famotidine 40 mg 11/09/23 16:00 11/09/23 20:29
Famotidine 40 Mg Tablet PO 12/07/23 15:59 40 mg
BID DINESH Administration
Heparin Sodium 5,000 units 11/09/23 08:00 11/09/23 15:23
Heparin 5,000 Units/Ml 1 Ml Vial SC 12/07/23 07:59 5,000 units
Q8 DINESH Administration
Heparin Sodium (Porcine) 500 unit 11/09/23 12:45
Heparin Flush Pf (100 Unit/Ml) 5 Ml Syringe IV 12/07/23 12:44
PER PROTOCOL DINESH
Sodium Bicarbonate 75 meq/ 1,075 mls @ 100 mls/hr 11/09/23 12:00 11/09/23 21:57
Sodium Chloride IV 11/10/23 11:56 1,075 mls
.[id number] DINESH Administration
Melatonin 5 mg 11/09/23 22:00 11/09/23 21:57
Melatonin 5 Mg Tablet PO 12/07/23 21:59 5 mg
HS DINESH Administration
Mirtazapine 7.5 mg 11/09/23 22:00 11/09/23 21:57
Mirtazapine 7.5 Mg Regular Release Tablet PO 12/07/23 21:59 7.5 mg
HS DINESH Administration
Multivitamins Therapeutic 1 tablet 11/09/23 08:00 11/09/23 08:52
Multivitamin Tablet PO 12/07/23 07:59 1 tablet
DAILY DINESH Administration
Finasteride [ 0 mg 11/09/23 08:00
Propecia] 1 Mg PO 12/07/23 07:59
Tablet Po Daily DAILY DINESH
Ondansetron HCl 4 mg 11/08/23 21:46 11/09/23 05:59
Ondansetron 4 Mg/2 Ml Vial IV 12/06/23 21:45 4 mg
Q6HPRN PRN Administration
nausea and vomiting
Pantoprazole Sodium 40 mg 11/10/23 08:00
Pantoprazole 40 Mg Delayed Release Tablet PO 12/08/23 07:59
DAILY DINESH
Polyethylene Glycol 17 grams 11/08/23 17:33
Polyethylene Glycol Powder 17 Grams Packet PO 12/06/23 17:32
DAILYPRN PRN
constipation
Senna/Docusate Sodium 1 tablet 11/08/23 17:33
Docusate W/Senna (Mckenna-Colace) Tablet PO 12/06/23 17:32
BIDPRN PRN
constipation
Sodium Chloride 0 flush 11/08/23 18:00
Sodium Chloride 0.9% (Flush) Syringe IV 12/06/23 17:59
PER PROTOCOL DINESH
Review of Systems
-
History Source: Patient and Records
All Other Systems: Reviewed and Negative
Constitutional: Reports Weight Loss and No Appetite
EENT: Reports No Symptoms
Respiratory: Reports Cough
Cardiac: Reports No Symptoms
GI: Reports Nausea, Vomiting and Other (distention)
Breast: Reports No Symptoms
: Reports No Symptoms
Musculoskeletal: Reports No Symptoms
Skin: Reports No Symptoms
Neuro: Reports No Symptoms
Endocrine: Reports No Symptoms
Hematologic/Lymphatic: Reports No Symptoms
Allergy / Immunology: Reports No Symptoms
Psych: Reports No Symptoms
Physical Exam
-
General: Well Developed, Well Nourished and No Apparent Distress
HEENT: Moist Mucous Membranes; Negative Jaundice
Cardiology: Normal Sinus Rhythm, S1 and S2
Pulmonary: Clear; Negative Wheezes
GI: Soft, Normal Bowel Sounds and Other
Musculoskeletal: No Clubbing, No Cyanosis and No Edema
Extremities: Pulses Present; Negative Phlebitic Signs
Neurology: Non Focal
Skin: Warm and Dry
Hematologic / Lymphatic: No Lymphadenopathy
Psych: Calm and Intact Judgement/Insight
Labs
Lab Results
WBC 18.8 10^3/uL (4.8-10.8) H 11/09/23 11:53
RBC 2.47 10^6/uL (4.70-6.10) L 11/09/23 11:53
Hgb 7.2 g/dL (13.0-18.0) L 11/09/23 11:53
Hct 21.9 % (39.0-52.0) L 11/09/23 11:53
MCV 88.7 fL (80.0-94.0) 11/09/23 11:53
MCH 29.1 pg (27.0-31.0) 11/09/23 11:53
MCHC 32.9 g/dL (33.0-37.0) L 11/09/23 11:53
RDW 16.2 % (11.5-14.5) H 11/09/23 11:53
Plt Count 167 10^3/uL (130-400) 11/09/23 11:53
MPV 9.7 fL (7.4-10.4) 11/09/23 11:53
Abs Immat Gran (auto) 2.3 10^3/uL (0-0.05) H 11/08/23 13:03
Absolute Neuts (auto) 21.4 10^3/uL (1.4-6.5) H 11/08/23 13:03
Absolute Lymphs (auto) 0.5 10^3/uL (1.2-3.4) L 11/08/23 13:03
Absolute Monos (auto) 0.2 10^3/uL (0.1-0.6) 11/08/23 13:03
Absolute Eos (auto) 0.0 10^3/uL (0-0.7) 11/08/23 13:03
Absolute Basos (auto) 0.0 10^3/uL (0-0.2) 11/08/23 13:03
Immature Gran % 9.3 % (0-0.5) H 11/08/23 13:03
Neutrophils % 87.5 % (42.2-75.2) H 11/08/23 13:03
Lymphocytes % 1.9 % (20.5-51.1) L 11/08/23 13:03
Monocytes % 0.9 % (1.7-9.3) L 11/08/23 13:03
Eosinophils % 0.2 % (0-6) 11/08/23 13:03
Basophils % 0.2 % (0-2) 11/08/23 13:03
Creatinine 1.3 mg/dL (0.7-1.3) 11/09/23 11:53
Vital Signs
Vital Signs
Temp Pulse Resp BP Pulse Ox
98.7 F 76 16 119/72 100
11/09/23 15:00 11/09/23 15:00 11/09/23 15:00 11/09/23 15:00 11/09/23 22:30
[2023-11-09 23:22] VITALS: BP 119/73
[2023-11-10 06:00] VITALS: BMI 26.9
[2023-11-10 07:00] VITALS: BP 132/75
[2023-11-10] MEDS: HEPARIN 5000 UNITS SC ×2 (08:46→16:55)
[2023-11-10] MEDS: OSCAL CAL 500 500 MG PO (08:46)
[2023-11-10] MEDS: THERAGRAN 1 TABLET PO (08:46)
[2023-11-10] MEDS: PROTONIX 40 MG PO (08:46)
[2023-11-10] MEDS: PEPCID 40 MG PO ×2 (08:46→21:07)
[2023-11-10] MEDS: SODIUM BICARBONATE 1075 MEQ IV (09:07)
--- NOTE | 2023-11-10 10:26 | W.PN.ONC2 ---
Documented by User: RODRIGO Melgar 11/10/23 11:42
Today's Communication / Plan
-
supportive care
transfuse Hgb <7 or as needed for sxs anemia
Impression
Impression
Met colorectal cancer s/p C1 FOLFIRI 11/03, pegfligrastim 11/05
Ascites presumed malignant s/p large-volume paracentesis 11/02
Chemo-assoc nausea/vomiting
Severe reflux symptoms
Poor PO intake -started mirtazapine
Cough with normal CXR and O2 sat, suspect reflux related
multifactorial Anemia, recent iron studies c/w AOCD, chemotherapy contributing. No folate or b12 deficency. s/p 1unit prbc 11/02
leukocytosis improving s/p pegfilgrastim 11/05, afebrile. Monitor for infection
CIPN on gabepentin
Plan
Plan
No evidence of obstruction on obstruction series.
Continue supportive care. antiemetic prn
continue H2 germán, PPI.
HARMONY management per Nephrology
transfuse Hgb <7 or as needed for sxs anemia
Subjective/Objective
Chief Complaint
using baclofen prn hiccups
on ppi and H2
has not rec'ed ondansetron in 24hr
Subjective
no new complaints
Vital Signs:
Vital Signs
Temp Pulse Resp BP Pulse Ox
98.4 F 83 20 132/75 98
11/10/23 07:00 11/10/23 07:00 11/10/23 07:00 11/10/23 07:00 11/10/23 08:20
Lab Results:
Laboratory Data
WBC 18.8 10^3/uL (4.8-10.8) H 11/09/23 11:53
Hgb 7.2 g/dL (13.0-18.0) L 11/09/23 11:53
Plt Count 167 10^3/uL (130-400) 11/09/23 11:53
eGFR > 60.00 11/09/23 11:53
Physical Exam
General: No Apparent Distress
HEENT: Moist Mucous Membranes; Negative Jaundice
Cardiology: Normal Sinus Rhythm, S1 and S2
Pulmonary: Clear; Negative Wheezes
GI: Soft, distended, ascites
Extremities: no edema
Neurology: Non Focal, speech clear
Skin: Warm and Dry
Review of Systems
Review of Systems
ROS notable for subjective, otherwise negative

Documented by User: Sadaf Duong MD 11/10/23 11:07
Today's Communication / Plan
-
CBC and CMP ordered for this am
No evidence of obstruction on obstruction series.
Continue supportive care. antiemetic prn
continue H2 germán, PPI.
HARMONY management per Nephrology, improved as of yesterday
transfuse Hgb <7 or as needed for sxs anemia
Will need to consider dose adjustments for next chemo cycle
Likely okay for d/c in next day or two
Plan
Plan
CBC and CMP ordered for this am
No evidence of obstruction on obstruction series.
Continue supportive care. antiemetic prn
continue H2 germán, PPI.
HARMONY management per Nephrology, improved as of yesterday
transfuse Hgb <7 or as needed for sxs anemia
Will need to consider dose adjustments for next chemo cycle
Subjective/Objective
Subjective
ate some breakfast
having some loose BMs
feeling a bit stronger
drinking water
using baclofen prn hiccups
on ppi and H2
has not rec'ed ondansetron in 24hr
--- NOTE | 2023-11-10 11:22 | W.PN.HOSP.TC ---
Today's Communication/Plan
-
see bold
Assessment / Plan
Assessment / Plan
Gen: NAD, AAOx3.
Eyes: EOMI, PERRLA, no scleral icterus.
Neck: supple.
CV: remains RRR, +S1/S2, no m/r/g.
Resp: remains CTAB, no rales, wheezes, or rhonchi.
Abd: remains +BS, soft, mild distention, ND
Skin: No rashes.
Neuro: CN 2-12 intact, non-focal.
Psych: Normal mood and affect.
OBST series 11/08/23: No active cardiopulmonary disease. No evidence of acute abdominal pathology.
Inability to tolerate oral intake:
-Inability to tolerate PO x 5 days with presenting HARMONY/Elevated BUN and recent chemotherapy (11/04/23)
-Obstruction series NEG as above. LFTs without acute findings. Lipase wnl.
-s/p 1L NS bolus in ER followed by maintenance fluids which continue
-Supportive care. Antiemetics.
-started Remeron 7.5mg HS
-cont PPI
-ONC following, GI to see
HARMONY:
-resolved with IVFs
-renal following
-currently on NS with 75meq HCO3-/L @ 100cc/hr
Leukocytosis:
-likely reactive
-no evidence of infection at this time
Microcytic Anemia:
-likely due to chemotherapy
-transfuse for Hb < 7
Other problems:
Metastatic Colon Cancer: Last chemotherapy received 11/04/23.
Essential HTN: Reports not taking lisinopril in recent past.
Neuropathy: Gabapentin held due to HARMONY. Pt reports not taking recently.
Allopecia: Cont finasteride.
DVT PPx - Heparin SC
Code Status: Agreeable to CPR but not intubation.
Anticipated Discharge: 24 - 48 hours
Subjective/Interval History
-
Date of Service: November 10, 2023
Pt states he feels better than yesterday. Denies abd pain or nausea.
Objective Data
-
Labs:
Laboratory Results
11/10/23
10:50
WBC Pending
Hgb Pending
Hct Pending
Plt Count Pending
Sodium Pending
Potassium Pending
Chloride Pending
Carbon Dioxide Pending
BUN Pending
Creatinine Pending
Glucose Pending
Calcium Pending
Total Bilirubin Pending
AST Pending
ALT Pending
Alkaline Phosphatase Pending
Vital Signs:
Vital Signs
Temp Pulse Resp BP Pulse Ox
98.4 F 83 20 132/75 98
11/10/23 07:00 11/10/23 07:00 11/10/23 07:00 11/10/23 07:00 11/10/23 08:20
I&O
11/09/23 11/10/23 11/11/23
06:59 06:59 06:59
Intake Total 2400 / 2400 1320 / 1320
Output Total 875 / 875
Balance 1525 / 1525 1320 / 1320
[2023-11-10 12:56] LABS: Hematocrit 21.7 % (39.0-52.0); Hemoglobin 7.1 g/dL (13.0-18.0); Mean Corp Hgb Conc. 32.7 g/dL (33.0-37.0); Mean Corpuscular Hgb 29.3 pg (27.0-31.0); Mean Corpuscular Volume 89.7 fL (80.0-94.0); Mean Platelet Volume 10.1 fL (7.4-10.4); Platelet Count 134 10^3/uL (130-400); Red Blood Cell Count 2.42 10^6/uL (4.70-6.10); Red Cell Dist. Width 16.1 % (11.5-14.5); White Blood Cell Count 5.8 10^3/uL (4.8-10.8)
[2023-11-10 13:13] LABS: ALT (SGPT) 12 U/L (0-50); AST (SGOT) 33 U/L (17-59); Albumin 2.7 g/dl (3.5-5.0); Alkaline Phosphatase 167 U/L (38-126); Blood Urea Nitrogen 34 mg/dl (9-20); Calcium 8.1 mg/dl (8.4-10.2); Carbon Dioxide 23 mmol/L (22-30); Chloride 102 mmol/L (98-107); Estimated Creatinine Clearance 81 ml/min; Glucose 103 mg/dl (70-99); Potassium 4.5 mmol/L (3.5-5.1); Sodium 135 mmol/L (135-145); Total Bilirubin 0.8 mg/dl (0.2-1.3); Total Protein 5.5 g/dl (6.3-8.2); eGFR > 60.00
[2023-11-10 13:27] LABS: Absolute Neutrophils -Man Diff 4.6 10^3/uL (1.4-6.5); Anisocytosis 1+; Band Neutrophils 3 % (0-3); Eosinophils 5 % (0-6); Hypochromasia 1+; Lymphocytes 10 % (20-51); Metamyelocytes 1 % (-); Monocytes 1 % (2-9); Myelocytes 2 % (-); Normal RBC Morphology No; Platelets Checked Yes; Segmented Neutrophils 78 % (42-75); Total Cells Counted 100
--- NOTE | 2023-11-10 13:50 | W.PN.NEPH.PH ---
Today's Communication / Plan
-
follow labs
Assessment/Plan
-
Impression:
Failure to thrive
HARMONY
Metastatic colon cancer: Receiving active chemotherapy Folfiri, Dr Lam
Newly diagnosed bladder mass
Hypertension ( has not been taking lisinopril )
Anemia
Plan:
HARMONY-resolved now cr down to 1.1
follow h/h , prn trasnfusion
BP stable,holding ACEI still
ok to d/c IVF , encourage po intake
will s/o, call wiht ?s
-
-
Date of Service: November 10, 2023
CC / HPI / ROS
-
Chief Complaint:
HARMONY
History of Present Illness:
cr better at 1.1
sodium normal 135
bP stable
Review of Systems:
no cp or sob
no n/v today
no dizziness
Labs
-
Labs:
WBC 5.8 10^3/uL (4.8-10.8) 11/10/23 12:34
RBC 2.42 10^6/uL (4.70-6.10) L 11/10/23 12:34
Hgb 7.1 g/dL (13.0-18.0) L 11/10/23 12:34
Hct 21.7 % (39.0-52.0) L 11/10/23 12:34
Plt Count 134 10^3/uL (130-400) 11/10/23 12:34
Sodium 135 mmol/L (135-145) 11/10/23 12:34
Potassium 4.5 mmol/L (3.5-5.1) 11/10/23 12:34
Chloride 102 mmol/L (98-107) 11/10/23 12:34
Carbon Dioxide 23 mmol/L (22-30) 11/10/23 12:34
BUN 34 mg/dl (9-20) H 11/10/23 12:34
Creatinine 1.1 mg/dL (0.7-1.3) 11/10/23 12:34
eGFR > 60.00 11/10/23 12:34
Glucose 103 mg/dl (70-99) H 11/10/23 12:34
Calcium 8.1 mg/dl (8.4-10.2) L 11/10/23 12:34
Albumin 2.7 g/dl (3.5-5.0) L 11/10/23 12:34
Physical Exam
-
Vital Signs:
Vital Signs
Temp Pulse Resp BP Pulse Ox
98.4 F 83 20 132/75 98
11/10/23 07:00 11/10/23 07:00 11/10/23 07:00 11/10/23 07:00 11/10/23 08:20
Cardiovascular:: Regular rate and rhythm
Respiratory:: Bilateral: CTA
Lung Excursion:: Normal
Abdomen:: Distended, Nontender and Soft
Extremity Edema:: None: Bilateral:
Hilliard Catheter: No
--- NOTE | 2023-11-10 14:12 | CON.GI ---
Consultation
-
Date/Time Consultation Requested: 11/10/23 8am
Date/Time Consultation Performed: 11/10/23 2pm
Requesting Provider: Matthew Latif
Performing Provider: Rick Meeks
Reason for Consultation: Decreased POs
Medical History
Chief Complaint / HPI
Chief Complaint: Decreased POs
History of Present Illness:
58yo male hx rectal CA recently found anastomotic recurrence in setting of indolent low volume metastatic dz. Treated w chemo/XRT with plans for surgery, which were cancelled when found to have progression in lungs, ribs, liver. Had large volume
paracentesis 8.5L on 11/02 at [place]. Last CT end of September at [place]. He started FOLFIRI 11/03 for his disease progression. called with intractable coughing and PO intolerance. Complains of reflux and feeling of regurgitation, even with
talking. Did not notice improvement after LVP.
Past Medical History
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
Past Surgical History: Other (Palliative laparoscopy 08/06/21, Port placement 07/2020)
Social History
Tobacco: Non-Smoker
Alcohol: Occasional
Family History
Family History: Reviewed & Not Pertinent
Allergies / Home Medications
Allergy/AdvReac Type Severity Reaction Status Date / Time
No Known Allergies Allergy Verified 11/08/23 12:30
�Medication �Instructions �Recorded
finasteride 1 mg tablet (Propecia) 1 mg PO DAILY HAIR GROWTH 07/03/20
gabapentin 300 mg capsule 600 mg PO BID neuropathy 11/03/23
lisinopril 10 mg tablet 10 mg PO DAILY Blood Pressure 11/03/23
Unknown Nausea Med 1 tab PO PRN PRN nausea 11/08/23
baclofen 5 mg tablet 5 mg PO DAILY PRN Hiccups 11/08/23
calcium carbonate 500 mg PO DAILY Supplement 11/08/23
ibuprofen 200 mg tablet (Advil) 400 mg PO Q6HPRN PRN mild pain 11/08/23
therapeutic multivitamin 1 tab PO DAILY Supplement 11/08/23
Review of Systems
-
All other systems: A 12 pt ROS was Negative except as stated above in HPI
Vital Signs
Temp Pulse Resp BP Pulse Ox
98.4 F 83 20 132/75 98
11/10/23 07:00 11/10/23 07:00 11/10/23 07:00 11/10/23 07:00 11/10/23 08:20
Physical Exam
Exam
General: No Apparent Distress
HEENT: Normocephalic and Atraumatic
Respiratory: Non Labored Respirations
GI: Soft, Non Tender and Distended (mildly distended)
Skin: Warm and Dry
Results
WBC 5.8 10^3/uL (4.8-10.8) 11/10/23 12:34
Hgb 7.1 g/dL (13.0-18.0) L 11/10/23 12:34
Hct 21.7 % (39.0-52.0) L 11/10/23 12:34
MCV 89.7 fL (80.0-94.0) 11/10/23 12:34
Plt Count 134 10^3/uL (130-400) 11/10/23 12:34
Absolute Neuts (auto) 21.4 10^3/uL (1.4-6.5) H 11/08/23 13:03
Sodium 135 mmol/L (135-145) 11/10/23 12:34
Potassium 4.5 mmol/L (3.5-5.1) 11/10/23 12:34
Chloride 102 mmol/L (98-107) 11/10/23 12:34
Carbon Dioxide 23 mmol/L (22-30) 11/10/23 12:34
BUN 34 mg/dl (9-20) H 11/10/23 12:34
Creatinine 1.1 mg/dL (0.7-1.3) 11/10/23 12:34
Calcium 8.1 mg/dl (8.4-10.2) L 11/10/23 12:34
Total Bilirubin 0.8 mg/dl (0.2-1.3) 11/10/23 12:34
AST 33 U/L (17-59) 11/10/23 12:34
ALT 12 U/L (0-50) 11/10/23 12:34
Alkaline Phosphatase 167 U/L (38-126) H 11/10/23 12:34
Lipase 48 U/L (23-300) 11/08/23 13:03
Hepatitis C Antibody Negative (Negative) 11/09/23 11:53
Diagnostic Image Results:
Prior GI Procedures:
EGD:
Colonoscopy:
Assessment / Plan
-
Summary: 58yo male with hx CRC metastatic at dx in 06/2020 recently with anastomotic recurrence rx'd with chemo/XRT. Following rx, found to have progression in lungs, ribs, liver. Large volume paracentesis 8.5L 11/02. Then started FOLFIRI 11/03 for
his disease progression. called with intractable coughing, intolerance POs. Last CT at [place] end of September. Reports 40#weight loss in last 2 months
Impression:
PO intolerance
Metastatic CRC recently found progression lungs, ribs, liver
s/p FOLFIRI initiation 11/03
Ascites, presumed malignant ascites
Recommendations:
Decreased POs likely due to recent chemo in setting of probable peritoneal carcinomatosis
Request CT report from [facility]
Continue supportive care, encourage POs- small frequent meals
Cont PPI, zofran
-
-
Thank you for consultation and allowing me to participate in the patient's care. Please call the sales operations specialist GI physician during the after hours with any questions or concerns.
--- NOTE | 2023-11-10 14:41 | CM ---
Patient seen at bedside. Per patient he lives with his in a 2 story home and has no DME or past need for VN. Patient stated that he has been independent of ADL's and IADL's. Therapy evaluated today and found no needs.
PCP: Dr. Summers
Pharm: [facility] in [place].
Plan: Discharge to home with no needs.
[2023-11-10 15:00] VITALS: BP 133/70
[2023-11-10] MEDS: REMERON 7.5 MG PO (21:07)
[2023-11-10] MEDS: LIORESAL 5 MG PO (21:07)
[2023-11-10] MEDS: MELATONIN 5 MG PO (21:07)
[2023-11-10 22:36] VITALS: BP 130/73
[2023-11-11] VITALS (9 sets, daily range): BP systolic 105–152; BP diastolic 59–92; BMI 26.8
[2023-11-11] MEDS: HEPARIN 5000 UNITS SC ×4 (00:10→23:10)
[2023-11-11] MEDS: PROTONIX 40 MG PO (09:04)
[2023-11-11] MEDS: OSCAL CAL 500 500 MG PO (09:04)
[2023-11-11] MEDS: PEPCID 40 MG PO ×2 (09:04→20:38)
[2023-11-11] MEDS: THERAGRAN 1 TABLET PO (09:04)
--- NOTE | 2023-11-11 09:04 | PN.CDI ---
CDI
- -
CDI:
Physician Documentation Request
Admit Date: 11/08/23 16:23
Dear Doctor Bhavya,
Please review the following and provide your response in the progress notes.
Clinical Indicators:
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
#Consult >40lb weight loss.
#...experienced majority of 40+lb weight loss over the past 6-8 weeks of chemo,
#...cancer treatments.
#...Very little intake over that time period due to weakness and
#...increased fullness from ascites, complaints of reflux.
#Pt meets criteria for severe protein calorie malnutrition of acute illness
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
#...moderat loss of subcutaneous fat (orbital, tricep) and muscle (calf).
Nephrology, consult, 11/08
#Impression:
#...Failure to thrive
#...HARMONY
Based on the above information and your clinical assessment, which of the following most accurately represents the patient's nutritional status?
Severe Protein Calorie Malnutrition of Acute Illness
Other (please specify)
Myrtle Criteria (ACP Hospitalist 2017)
2 or more criteria must be present for either
non severe or severe malnutrition
Note that the criteria differs related to the
presence of an acute or chronic illness
Acute Illness
Energy Intake Non Severe: <75% for >7 days
Severe: <50% for >5 days
Weight Loss Non Severe: 1-2% over 1 week
5% over 1 month
7.5% over 3 months
1 year N/A
Severe: >2% over 1 week
>5% over 1 month
>7.5% over 3 months
1 year N/A
Body Fat Non Severe: Mild Decrease
Severe: Moderate Decrease
Muscle Mass Non Severe: Mild Decrease
Severe: Moderate Decrease
Use of terms such as suspected, likely, concern for, or probable (associated with a specific diagnosis that is being evaluated, monitored, or treated as if it exists) are acceptable and can be coded in the inpatient setting, when documented at the
time of discharge.
Thank you,
Landy Leal RN BSN CCDS
CDI Specialist
please contact via tiger text
Please use your independent medical judgment in providing your response.
--- NOTE | 2023-11-11 09:24 | W.PN.ONC2 ---
Today's Communication / Plan
-
Thorazine PRN hiccups.
Impression
Impression
Met colorectal cancer s/p C1 FOLFIRI 11/03, pegfligrastim 11/05
Ascites presumed malignant s/p large-volume paracentesis 11/02
Chemo-assoc nausea/vomiting
Severe reflux symptoms
Poor PO intake -started mirtazapine
Cough with normal CXR and O2 sat, suspect reflux related
multifactorial Anemia, recent iron studies c/w AOCD, chemotherapy contributing. No folate or b12 deficency. s/p 1unit prbc 11/02
leukocytosis improving s/p pegfilgrastim 11/05, afebrile. Monitor for infection
CIPN on gabepentin
Plan
Plan
Continue supportive care. antiemetic prn continue H2 germán, PPI.
Thorazine PRN hiccups
Will need to consider dose adjustments for next chemo cycle
Subjective/Objective
Chief Complaint
ACS Heme Onc
Subjective
+ Hiccups.
Vital Signs:
Vital Signs
Temp Pulse Resp BP Pulse Ox
99.7 F 85 20 105/59 97
11/11/23 06:51 11/11/23 06:51 11/11/23 06:51 11/11/23 06:51 11/11/23 06:51
Lab Results:
Laboratory Data
WBC 5.8 10^3/uL (4.8-10.8) 11/10/23 12:34
Hgb 7.1 g/dL (13.0-18.0) L 11/10/23 12:34
Plt Count 134 10^3/uL (130-400) 11/10/23 12:34
eGFR > 60.00 11/10/23 12:34
Physical Exam
HEENT: Other (cachetic)
Cardiology: S1 and S2
Pulmonary: Clear
GI: Soft and Distended
Extremities: No C/C/E
--- NOTE | 2023-11-11 09:40 | W.PN.HOSP.TC ---
Today's Communication/Plan
-
see bold
Assessment / Plan
Assessment / Plan
Gen: NAD, AAOx3.
Eyes: EOMI, PERRLA, no scleral icterus.
Neck: supple.
CV: continues to remain RRR, +S1/S2, no m/r/g.
Resp: continues to remain CTAB, no rales, wheezes, or rhonchi.
Abd: +BS, soft, mild-mod distention, ND
Skin: No rashes.
Neuro: CN 2-12 intact, non-focal.
Psych: Normal mood and affect.
OBST series 11/08/23: No active cardiopulmonary disease. No evidence of acute abdominal pathology.
Inability to tolerate oral intake:
-Inability to tolerate PO x 5 days with presenting HARMONY/Elevated BUN and recent chemotherapy (11/04/23)
-Obstruction series NEG as above. LFTs without acute findings. Lipase wnl.
-s/p 1L NS bolus in ER followed by maintenance fluids
-started on Remeron 7.5mg HS
-cont PPI
-ONC/GI following, supportive care at this time
-thorazine for hiccups
HARMONY and metabolic acidosis:
-resolved with IVFs (NS with 75meq HCO3-/L @ 100cc/hr)
-renal saw in c/s
Leukocytosis:
-likely reactive
-no evidence of infection at this time
-resolved
Microcytic Anemia:
-likely due to chemotherapy
-transfuse 2U pRBCs today
Other problems:
Metastatic Colon Cancer: Last chemotherapy received 11/04/23.
Essential HTN: Reports not taking lisinopril in recent past.
Neuropathy: Gabapentin held due to HARMONY. Pt reports not taking recently.
Allopecia: Cont finasteride.
Severe Protein Calorie Malnutrition of Acute Illness
DVT PPx - Heparin SC
Code Status: Agreeable to CPR but not intubation.
Anticipated Discharge: Within 24 hours
Subjective/Interval History
-
Date of Service: November 11, 2023
c/o hiccups. No abd pain or vomiting.
Objective Data
-
Vital Signs:
Vital Signs
Temp Pulse Resp BP Pulse Ox
99.7 F 85 20 105/59 97
11/11/23 06:51 11/11/23 06:51 11/11/23 06:51 11/11/23 06:51 11/11/23 06:51
I&O
11/10/23 11/11/23 11/12/23
06:59 06:59 06:59
Intake Total 1320 / 1320
Balance 1320 / 1320
[2023-11-11] MEDS: THORAZINE 25 MG PO ×3 (10:28→23:48)
--- NOTE | 2023-11-11 12:21 | W.PN.GI.CBS2 ---
Today's Communication / Plan
-
Agree with ongoing supportive acre and addition of Thorazine for hiccups along with Baclofen. Ongoing supportive care. Would consider Palliative care consult. See rest of plan as outlined below. GI team will sign-off but please re-contact with any
questions or concerns.
Assessment / Plan
-
Summary: 58yo male with hx CRC metastatic at dx in 06/2020 recently with anastomotic recurrence rx'd with chemo/XRT. Following rx, found to have progression in lungs, ribs, liver. Large volume paracentesis 8.5L 11/02. Then started FOLFIRI 11/03 for
his disease progression. Worsening intractable coughing, intolerance POs and hiccups. Last CT at [place] end of September. Reports 40#weight loss in last 2 months
#PO intolerance #Failure to Thrive
#Reflux #Hiccups
#Chemo-associated #Nausea/Vomiting
#Metastatic CRC recently found progression lungs, ribs, liver
#s/p FOLFIRI initiation 11/03
#Ascites, presumed malignant ascites
Recommendations:
- Encourage small, frequent bite-sized meals
- Supplement with Boosts/Ensures as tolerated
- Agree with ongoing IV PPI and Pepcid 40 mg qhs for maximal acid suppression
- Baclofen PRN for hiccups, primary team starting Thorazine PRN as well
- Avoidance of all NSAIDs
- No plans for endoscopic evaluation and agree with ongoing supportive care
- Oncology following, considering adjusting dose during next cycle of chemo
- Recommend Nutrition consult and consider Palliative care consult this admission
- Rest of care per primary team
GI team will sign-off. Please recontact with any questions or concerns.
Subjective
Subjective
Date of Service: November 11, 2023
No acute events overnight
Still with some ongoing reflux but without any recent nausea/vomiting. Does note worsening hiccups despite Baclofen.
Objective
Data Reviewed
Laboratory Data:
Laboratory Results
11/10/23 12:34
11/10/23 12:34
Laboratory Results
Magnesium 2.5 mg/dl (1.6-2.3) H 11/09/23 11:53
Total Bilirubin 0.8 mg/dl (0.2-1.3) 11/10/23 12:34
AST 33 U/L (17-59) 11/10/23 12:34
ALT 12 U/L (0-50) 11/10/23 12:34
Alkaline Phosphatase 167 U/L (38-126) H 11/10/23 12:34
Lipase 48 U/L (23-300) 11/08/23 13:03
Vital Signs and I&O:
Vital Signs
Temp Pulse Resp BP Pulse Ox
99.7 F 85 20 105/59 97
11/11/23 06:51 11/11/23 06:51 11/11/23 06:51 11/11/23 06:51 11/11/23 06:51
I&O
11/10/23 11/11/23 11/12/23
06:59 06:59 06:59
Intake Total 1320 / 1320
Balance 1320 / 1320
Physical Exam
Physical Exam
HEENT: Anicteric
Cardiology: Normal Sinus Rhythm
Pulmonary: Other (Breathing comfortably on room air)
GI: Distended and Non Tender
Extremities: Warm
Neuro: Non Focal
[2023-11-11] MEDS: LIORESAL 5 MG PO (21:44)
[2023-11-11] MEDS: REMERON 7.5 MG PO (21:44)
[2023-11-11] MEDS: MELATONIN 5 MG PO (21:44)
[2023-11-12 05:16] LABS: Hemoglobin 7.6 g/dL (13.0-18.0); Mean Corp Hgb Conc. 34.5 g/dL (33.0-37.0); Mean Platelet Volume 10.4 fL (7.4-10.4); Platelet Count 108 10^3/uL (130-400); Red Blood Cell Count 2.62 10^6/uL (4.70-6.10); Red Cell Dist. Width 15.9 % (11.5-14.5)
[2023-11-12 05:24] LABS: Blood Urea Nitrogen 25 mg/dl (9-20); Calcium 8.1 mg/dl (8.4-10.2); Carbon Dioxide 21 mmol/L (22-30); Chloride 101 mmol/L (98-107); Estimated Creatinine Clearance 81 ml/min; Glucose 117 mg/dl (70-99); Magnesium 2.1 mg/dl (1.6-2.3); Potassium 3.9 mmol/L (3.5-5.1); Sodium 134 mmol/L (135-145); eGFR > 60.00
[2023-11-12 06:00] VITALS: BMI 27.1
[2023-11-12 06:51] VITALS: BP 108/64
--- NOTE | 2023-11-12 07:30 | CM ---
patient with failure to thrive,started on remeron hs,cont ppi,gi suggested palliative care cs.Plan home with no needs.
[2023-11-12] MEDS: PROTONIX 40 MG PO (08:50)
[2023-11-12] MEDS: HEPARIN 5000 UNITS SC ×2 (08:50→23:07)
[2023-11-12] MEDS: OSCAL CAL 500 500 MG PO (08:50)
[2023-11-12] MEDS: THERAGRAN 1 TABLET PO (08:50)
[2023-11-12] MEDS: PEPCID 40 MG PO ×2 (08:50→21:21)
[2023-11-12] MEDS: THORAZINE 25 MG PO (08:58)
--- NOTE | 2023-11-12 11:10 | W.PN.HOSP.TC ---
Today's Communication/Plan
-
see bold
Assessment / Plan
Assessment / Plan
Gen: NAD, AAOx3, appears chronically ill.
Eyes: EOMI, PERRLA, no scleral icterus.
Neck: supple.
CV: RRR, +S1/S2, no m/r/g.
Resp: CTAB, no rales, wheezes, or rhonchi.
Abd: +BS, soft, mod distention, ND
Skin: No rashes.
Neuro: CN 2-12 intact, non-focal.
Psych: Normal mood and affect.
OBST series 11/08/23: No active cardiopulmonary disease. No evidence of acute abdominal pathology.
Inability to tolerate oral intake:
-Inability to tolerate PO x 5 days with presenting HARMONY/Elevated BUN and recent chemotherapy (11/04/23)
-Obstruction series NEG as above. LFTs without acute findings. Lipase wnl.
-s/p 1L NS bolus in ER followed by maintenance fluids
-started on Remeron 7.5mg HS
-cont PPI
-ONC/GI following, supportive care at this time
-thorazine for hiccups
HARMONY and metabolic acidosis:
-resolved with IVFs (NS with 75meq HCO3-/L @ 100cc/hr)
-renal saw in c/s
Leukocytosis:
-likely reactive
-no evidence of infection at this time
-resolved
Microcytic Anemia:
-likely due to chemotherapy
-s/p 2U pRBCs
Other problems:
Metastatic Colon Cancer: Last chemotherapy received 11/04/23. c/s IR for Dx/Tx paracentesis.
Essential HTN: Reports not taking lisinopril in recent past.
Neuropathy: Gabapentin held due to HARMONY. Pt reports not taking recently.
Allopecia: Cont finasteride.
Severe Protein Calorie Malnutrition of Acute Illness
DVT PPx - Heparin SC
Code Status: Agreeable to CPR but not intubation.
Anticipated Discharge: 24 - 48 hours
Subjective/Interval History
-
Date of Service: November 12, 2023
pt is eating a little more. c/o worsening abdominal 'bloating.'
Objective Data
-
Labs:
Laboratory Results
11/12/23
04:29
WBC 2.0 L*
Hgb 7.6 L
Hct 22.0 L
Plt Count 108 L
Sodium 134 L
Potassium 3.9
Chloride 101
Carbon Dioxide 21 L
BUN 25 H
Creatinine 1.1
Glucose 117 H
Calcium 8.1 L
Vital Signs:
Vital Signs
Temp Pulse Resp BP Pulse Ox
98.1 F 88 22 108/64 96
11/12/23 06:51 11/12/23 06:51 11/12/23 06:51 11/12/23 06:51 11/12/23 06:51
I&O
11/11/23 11/12/23 11/13/23
06:59 06:59 06:59
Intake Total 2420 / 2420
Balance 2420 / 2420
[2023-11-12 15:12] VITALS: BP 128/78
[2023-11-12 15:50] VITALS: BP 123/83; BP_SYST 92
[2023-11-12 16:54] VITALS: BP 117/76
[2023-11-12] MEDS: HEPARIN SC (17:10)
[2023-11-12 17:25] LABS: Body Fluid Mononuclear 58.3 %; Body Fluid Polymorphonuclear 41.7 %; Body Fluid WBC 489 /CUMM
[2023-11-12 17:36] LABS: Body Fluid Second Tech LD
[2023-11-12 17:37] LABS: Body Fluid LDH 274 U/L
--- NOTE | 2023-11-12 19:20 | W.PN.ONC2 ---
Today's Communication / Plan
-
Improving tolerance of PO's.
Continue supportive care seems ready for D/C soon.
Impression
Impression
Met colorectal cancer s/p C1 FOLFIRI 11/03, pegfligrastim 11/05
Ascites presumed malignant s/p large-volume paracentesis 11/02
Chemo-assoc nausea/vomiting
Severe reflux symptoms
Poor PO intake -started mirtazapine
Cough with normal CXR and O2 sat, suspect reflux related
multifactorial Anemia, recent iron studies c/w AOCD, chemotherapy contributing. No folate or b12 deficency. s/p 1unit prbc 11/02
leukocytosis improving s/p pegfilgrastim 11/05, afebrile. Monitor for infection
CIPN on gabepentin
Plan
Plan
Continue supportive care. antiemetic prn continue H2 germán, PPI.
Thorazine PRN hiccups
Will need to consider dose adjustments for next chemo cycle
Suggest addition of bevacizumab to FOLFIRI to help control ascites
Provided encouragement to pt that treatment should be better tolerated once he begins to respond
Suggest consideration of medical marijuana certification
Subjective/Objective
Chief Complaint
Heme/Onco follow up of met colorectal cancer and chemo-enteritis
Subjective
Tolerate grilled cheese today. Heartburn improved with paracentesis.
Vital Signs:
Vital Signs
Temp Pulse Resp BP Pulse Ox
97.9 F 91 16 117/76 100
11/12/23 15:50 11/12/23 16:54 11/12/23 16:54 11/12/23 16:54 11/12/23 15:50
Lab Results:
Laboratory Data
WBC 2.0 10^3/uL (4.8-10.8) L* 11/12/23 04:29
Hgb 7.6 g/dL (13.0-18.0) L 11/12/23 04:29
Plt Count 108 10^3/uL (130-400) L 11/12/23 04:29
eGFR > 60.00 11/12/23 04:29
Physical Exam
Awake, alert, non-toxic appearing
[2023-11-12 23:00] VITALS: BP 105/63
[2023-11-12] MEDS: MELATONIN 5 MG PO (23:06)
[2023-11-12] MEDS: REMERON 7.5 MG PO (23:07)
[2023-11-13 06:00] VITALS: BMI 25.8
[2023-11-13 07:30] VITALS: BP 126/81
[2023-11-13 08:00] VITALS: BP 126/81
[2023-11-13] MEDS: PROTONIX 40 MG PO (08:35)
[2023-11-13] MEDS: PEPCID 40 MG PO (08:35)
[2023-11-13] MEDS: OSCAL CAL 500 500 MG PO (08:35)
[2023-11-13] MEDS: THORAZINE 25 MG PO (08:38)
[2023-11-13] MEDS: HEPARIN 5000 UNITS SC (08:38)
[2023-11-13] MEDS: THERAGRAN 1 TABLET PO (09:28)
--- NOTE | 2023-11-13 12:12 | W.PN.HOSP.TC ---
Today's Communication/Plan
-
d/c
Assessment / Plan
Assessment / Plan
Gen: NAD, AAOx3, appears chronically ill.
Eyes: EOMI, PERRLA, no scleral icterus.
Neck: supple.
CV: Remains RRR, +S1/S2, no m/r/g.
Resp: Remains CTAB, no rales, wheezes, or rhonchi.
Abd: +BS, soft, mild distention, ND
Skin: No rashes.
Neuro: CN 2-12 intact, non-focal.
Psych: Normal mood and affect.
OBST series 11/08/23: No active cardiopulmonary disease. No evidence of acute abdominal pathology.
Inability to tolerate oral intake:
-Inability to tolerate PO x 5 days with presenting HARMONY/Elevated BUN and recent chemotherapy (11/04/23)
-Obstruction series NEG as above. LFTs without acute findings. Lipase wnl.
-s/p 1L NS bolus in ER followed by maintenance fluids
-started on Remeron 7.5mg HS
-cont PPI
-ONC/GI following, supportive care at this time
-thorazine for hiccups
HARMONY and metabolic acidosis:
-resolved with IVFs (NS with 75meq HCO3-/L @ 100cc/hr)
-renal saw in c/s
Leukocytosis:
-likely reactive
-no evidence of infection at this time
-resolved, now leukopenic due to chemotherapy
Microcytic Anemia:
-likely due to chemotherapy
-s/p 2U pRBCs
Other problems:
Metastatic Colon Cancer: Last chemotherapy received 11/04/23. s/p Tx paracentesis for 4650cc on 11/12/23.
Essential HTN: Reports not taking lisinopril in recent past.
Neuropathy: Gabapentin held due to HARMONY. Pt reports not taking recently.
Allopecia: Cont finasteride.
Severe Protein Calorie Malnutrition of Acute Illness
DVT PPx - Heparin SC
Code Status: Agreeable to CPR but not intubation.
Case discussed with Dr. Desai and the pt is medically cleared for d/c..
Pt's updated at bedside.
Total time spent on d/c = 40 min. This included today's physical exam, progress note, review of laboratory and diagnostic data, preparation of discharge documents and prescriptions, and discussions about the pt's hospital course and discharge plan
with the patient and other emergency medical service manager involved in the patient's care.
Anticipated Discharge: Today
Subjective/Interval History
-
Date of Service: November 13, 2023
No new complaints.
Objective Data
-
Vital Signs:
Vital Signs
Temp Pulse Resp BP Pulse Ox
97.5 F 81 20 126/81 99
11/13/23 07:30 11/13/23 07:30 11/13/23 07:30 11/13/23 07:30 11/13/23 07:30
I&O
11/12/23 11/13/23 11/14/23
06:59 06:59 06:59
Intake Total 2420 / 2420 600 / 600
Balance 2420 / 2420 600 / 600
[2023-11-13 12:50] LABS: Hematocrit 25.1 % (39.0-52.0); Hemoglobin 8.7 g/dL (13.0-18.0); Mean Corp Hgb Conc. 34.7 g/dL (33.0-37.0); Mean Corpuscular Hgb 29.8 pg (27.0-31.0); Mean Platelet Volume 10.4 fL (7.4-10.4); Platelet Count 141 10^3/uL (130-400); Red Blood Cell Count 2.92 10^6/uL (4.70-6.10); Red Cell Dist. Width 15.7 % (11.5-14.5); White Blood Cell Count 1.5 10^3/uL (4.8-10.8)
--- NOTE | 2023-11-13 12:56 | W.PN.ONC2 ---
Today's Communication / Plan
-
Improving tolerance of PO's.
Continue supportive care seems ready for D/C soon.
OP follow up upon discharge will be arranged
Impression
Impression
Met colorectal cancer s/p C1 FOLFIRI 11/03, pegfligrastim 11/05
Ascites presumed malignant s/p large-volume paracentesis 11/02
Chemo-assoc nausea/vomiting
Severe reflux symptoms
Poor PO intake -started mirtazapine
Cough with normal CXR and O2 sat, suspect reflux related
multifactorial Anemia, recent iron studies c/w AOCD, chemotherapy contributing. No folate or b12 deficency. s/p 1unit prbc 11/02
leukocytosis improving s/p pegfilgrastim 11/05, afebrile. Monitor for infection
CIPN on gabepentin
Plan
Plan
Continue supportive care. antiemetic prn continue H2 germán, PPI.
Thorazine PRN hiccups
Will need to consider dose adjustments for next chemo cycle
Suggest addition of bevacizumab to FOLFIRI to help control ascites
Provided encouragement to pt that treatment should be better tolerated once he begins to respond
Suggest consideration of medical marijuana certification
Subjective/Objective
Chief Complaint
no new complaints
eager for discharge
Subjective
feeling better
Vital Signs:
Vital Signs
Temp Pulse Resp BP Pulse Ox
97.5 F 81 20 126/81 99
11/13/23 07:30 11/13/23 07:30 11/13/23 07:30 11/13/23 07:30 11/13/23 08:40
Lab Results:
Laboratory Data
WBC 1.5 10^3/uL (4.8-10.8) L* 11/13/23 12:32
Hgb 8.7 g/dL (13.0-18.0) L 11/13/23 12:32
Plt Count 141 10^3/uL (130-400) D 11/13/23 12:32
eGFR > 60.00 11/12/23 04:29
Physical Exam
HEENT: Moist Mucous Membranes; No Jaundice
Cardiology: S1 and S2
Pulmonary: Clear
GI: Soft
Extremities: No Edema
Neuro: Other (speech clear, A&O3)
Review of Systems
Review of Systems
ROS notable for subjective, otherwise negative
[2023-11-13 13:07] LABS: Blood Urea Nitrogen 19 mg/dl (9-20); Carbon Dioxide 22 mmol/L (22-30); Chloride 98 mmol/L (98-107); Estimated Creatinine Clearance 89 ml/min; Glucose 120 mg/dl (70-99); Sodium 130 mmol/L (135-145); eGFR > 60.00
[2023-11-13 13:46] VITALS: BP 126/73
[2023-11-13 14:23] VITALS: BP 110/75
--- NOTE | 2023-11-13 15:24 | W.DCSUMMARY ---
Discharge Summary
Discharge Data
Date of Admission: 11/08/23
Date of Discharge: 11/13/23
-
Pending Results: No
Hospital Course
Primary diagnoses:
Poor oral intake due to metastatic colon cancer and chemotherapy
Acute kidney injury with metabolic acidosis
Secondary diagnoses:
Leukocytosis followed by leukopenia due to chemotherapy
Microcytic anemia
Essential hypertension
Neuropathy
Allopecia
Severe Protein Calorie Malnutrition of Acute Illness
Consultants:
Oncology
Gastroenterology
Nephrology
Imaging:
OBST series 11/08/23: No active cardiopulmonary disease. No evidence of acute abdominal pathology.
Renal U/S:
1. Moderate chronic bilateral renal disease.
2. No sonographic evidence for hydronephrosis or nephrolithiasis.
3. Moderate diffuse urinary bladder wall thickening.
4. 4.7 cm malignant mass posterior to the urinary bladder.
5. Small volume of upper abdominal ascites.
Hospital course: 58-year-old male who presented with a chief complaint of inability to tolerate oral intake is on the need to be done on admission. He was having significant difficulty with oral intake over the 5 days prior to admission. He
presented with acute kidney injury. He did recently a chemotherapy November 04, 2023. Obstruction series was negative as above. LFTs were unremarkable. Lipase was normal. Renal ultrasound was without hydronephrosis as above. Patient's acute
kidney injury metabolic acidosis resolved with IV fluids containing bicarbonate. Patient's leukocytosis was likely reactive. There is no evidence of infection. The patient's leukocytosis resolved and then he was leukopenic due to chemotherapy.
He did receive 2 units of packed red blood cells for microcytic anemia. Patient was started on Remeron. He was treated supportively. His appetite improved. He also had a therapeutic paracentesis for 4650cc on 11/12/23. The case was discussed with
Dr. Desai and was cleared for discharge. He was discharged in medically stable condition.
Discharge Plan
-
Patient Disposition: Home (Routine Discharge)
Discharge Diagnosis/Procedures: Poor oral intake due to metastatic colon cancer and chemotherapy, therapeutic paracentesis
Condition: Good
Diet: Regular
Activity: As tolerated
Driving Restrictions: As prior to admission
Referrals:
Nadir Valadez, DO [Active] - in two to three days (appointment at 2:15 on 11/16/23)
Eufemia Medina PA-C [Family Provider] -
Prescriptions:
New
famotidine 40 mg Tablet
40 mg PO BID Qty: 60 0RF
pantoprazole 40 mg Tablet,Delayed Release (Dr/Ec)
40 mg PO DAILY Qty: 30 0RF
chlorpromazine 25 mg Tablet
25 mg PO Q6HPRN PRN (Reason: hiccups) Qty: 30 0RF
mirtazapine 7.5 mg Tablet
7.5 mg PO HS Qty: 30 0RF
melatonin 5 mg Tablet
5 mg PO HS Qty: 0 0RF
Continued
finasteride [Propecia] 1 MG tablet
1 mg PO DAILY
therapeutic multivitamin Tablet
1 tab PO DAILY
calcium carbonate 500 mg calcium (1,250 mg) Tablet
500 mg PO DAILY
ibuprofen [Advil] 200 mg Tablet
400 mg PO Q6HPRN PRN (Reason: mild pain)
Unknown Nausea Med
1 tab PO PRN PRN (Reason: nausea)
Patient Comments:
11/08/23: Patient does not know the name of this medication, but says it was prescribed to help with his nausea.
baclofen 5 mg Tablet
5 mg PO DAILY PRN (Reason: Hiccups)
Discontinued
gabapentin 300 mg Capsule
600 mg PO BID
lisinopril 10 mg Tablet
10 mg PO DAILY
Discharge Orders:
Discharge Patient (As Directed); Ordered 11/13/23
Ordered By: Matthew Bhavya
Discharge Date and Time
Discharge Date/Time: 11/13/23 14:50
Print Language: [email or web address]
== END 2023-11-13 14:50 | disposition home or self-care (01) | DRG 682 ==
LOC: 4 EAST ACU 16:23
PROVIDERS: Internal Medicine Hematology & Oncology; Nurse Practitioner Gerontology; Radiology Diagnostic Radiology; ADMITTING PHYSICIAN Internal Medicine; ATTENDING PHYSICIAN Internal Medicine; CONSULT PHYSICIAN Internal Medicine Hematology & Oncology; CONSULT PHYSICIAN Specialist; EMERGENCY PHYSICIAN Emergency Medicine; FAMILY PHYSICIAN Physician Assistant Medical; OTHER PHYSICIAN Specialist
PROC: 30233N1 Transfusion of Nonautologous Red Blood Cells into Peripheral Vein, Percutaneous Approach (ICD-10-PCS; 2023-11-11)
PROC: 0W9G3ZX Drainage of Peritoneal Cavity, Percutaneous Approach, Diagnostic (ICD-10-PCS; 2023-11-12)
DX: N17.9 Acute kidney failure, unspecified (principal); E43 Unspecified severe protein-calorie malnutrition; C19 Malignant neoplasm of rectosigmoid junction; E87.20 Acidosis, unspecified; C79.9 Secondary malignant neoplasm of unspecified site; T45.1X5A Adverse effect of antineoplastic and immunosuppressive drugs, initial encounter; D70.1 Agranulocytosis secondary to cancer chemotherapy; D50.9 Iron deficiency anemia, unspecified; N18.9 Chronic kidney disease, unspecified; I12.9 Hypertensive chronic kidney disease with stage 1 through stage 4 chronic kidney disease, or unspecified chronic kidney disease; Z68.25 Body mass index [BMI] 25.0-25.9, adult
CPT/HCPCS: 49083; 74022; 76770; 80048; 80053; 81003; 81015; 82570; 82728; 83540; 83550; 83615; 83690; 83735; 83935; 84157; 84300; 85025; 85027; 86803; 86850; 86900; 86901; 86920; 87015; 87040; 87070; 87086; 87205; 89051; 93005; 96361; 96374; 96376; 97162; 99285; J7030; P9016

== ENCOUNTER → 2023-11-18 15:53 | Outpatient (REF) | payer OTHER, SELFPAY ==
[2023-11-18 15:09] LABS: % Basophils 0.3 % (0-2); % Eosinophils 1.3 % (0-6); % Immature Granulocytes 15.1 % (0-0.5); % Lymphocytes 7.9 % (20.5-51.1); % Monocytes 8.6 % (1.7-9.3); % Neutrophils 66.8 % (42.2-75.2); Absolute Eosinophils 0.2 10^3/uL (0-0.7); Absolute Immature Granulocytes 2.2 10^3/uL (0-0.05); Absolute Lymphocytes 1.1 10^3/uL (1.2-3.4); Absolute Monocytes 1.2 10^3/uL (0.1-0.6); Absolute Neutrophils 9.7 10^3/uL (1.4-6.5); Hematocrit 26.4 % (39.0-52.0); Hemoglobin 8.6 g/dL (13.0-18.0); Mean Corp Hgb Conc. 32.6 g/dL (33.0-37.0); Mean Corpuscular Hgb 29.3 pg (27.0-31.0); Mean Corpuscular Volume 89.8 fL (80.0-94.0); Mean Platelet Volume 9.8 fL (7.4-10.4); Platelet Count 291 10^3/uL (130-400); Red Blood Cell Count 2.94 10^6/uL (4.70-6.10); Red Cell Dist. Width 17.8 % (11.5-14.5); White Blood Cell Count 14.5 10^3/uL (4.8-10.8)
[2023-11-18 15:59] LABS: ALT (SGPT) 18 U/L (0-50); AST (SGOT) 32 U/L (17-59); Alkaline Phosphatase 232 U/L (38-126); Blood Urea Nitrogen 23 mg/dl (9-20); Calcium 8.5 mg/dl (8.4-10.2); Carbon Dioxide 22 mmol/L (22-30); Chloride 102 mmol/L (98-107); Glucose 108 mg/dl (70-99); Iron 66 ug/dl (49-181); Potassium 3.7 mmol/L (3.5-5.1); Sodium 136 mmol/L (135-145); Total Bilirubin 0.6 mg/dl (0.2-1.3); Total Protein 5.8 g/dl (6.3-8.2); eGFR > 60.00
[2023-11-18 16:08] LABS: Percent Saturation 30 % (20-50); Total Iron Binding Capacity 217 ug/dl (261-462)
[2023-11-18 17:05] LABS: Folate > 20.0 ng/ml (2.76-20); Vitamin B12 > 1000 pg/ml (239-931)
== END ==
LOC: OIDL 15:53
PROVIDERS: ATTENDING PHYSICIAN Internal Medicine Hematology & Oncology
DX: C18.7 Malignant neoplasm of sigmoid colon (principal)
CPT/HCPCS: 80053; 82607; 82728; 82746; 83540; 83550; 85025

== ENCOUNTER → 2023-11-20 12:29 | Outpatient (REF) | payer OTHER, SELFPAY ==
[2023-11-20 13:02] VITALS: BP 126/87; BP_SYST 100
[2023-11-20 14:08] VITALS: BP 119/72
[2023-11-20 15:13] LABS: Body Fluid WBC 724 /CUMM
[2023-11-20 15:14] LABS: Body Fluid Mononuclear 62.5 %; Body Fluid Polymorphonuclear 37.5 %
[2023-11-20 15:15] LABS: Body Fluid Second Tech FB
== END ==
LOC: RADI 12:29
PROVIDERS: ATTENDING PHYSICIAN Nurse Practitioner Family
DX: R18.8 Other ascites (principal)
CPT/HCPCS: 49083; 89051

== ENCOUNTER → 2023-11-23 16:03 | Outpatient (REF) | payer OTHER, SELFPAY ==
[2023-11-23 15:52] LABS: Hematocrit 26.3 % (39.0-52.0); Hemoglobin 8.5 g/dL (13.0-18.0); Mean Corp Hgb Conc. 32.3 g/dL (33.0-37.0); Mean Corpuscular Hgb 28.5 pg (27.0-31.0); Mean Corpuscular Volume 88.3 fL (80.0-94.0); Mean Platelet Volume 9.6 fL (7.4-10.4); Platelet Count 304 10^3/uL (130-400); Red Blood Cell Count 2.98 10^6/uL (4.70-6.10); Red Cell Dist. Width 19.3 % (11.5-14.5); White Blood Cell Count 24.7 10^3/uL (4.8-10.8)
[2023-11-23 15:53] LABS: ALT (SGPT) 17 U/L (0-50); AST (SGOT) 28 U/L (17-59); Albumin 2.8 g/dl (3.5-5.0); Alkaline Phosphatase 185 U/L (38-126); Blood Urea Nitrogen 24 mg/dl (9-20); Calcium 8.7 mg/dl (8.4-10.2); Carbon Dioxide 16 mmol/L (22-30); Chloride 107 mmol/L (98-107); Glucose 86 mg/dl (70-99); Potassium 3.7 mmol/L (3.5-5.1); Sodium 138 mmol/L (135-145); Total Bilirubin 0.4 mg/dl (0.2-1.3); Total Protein 5.5 g/dl (6.3-8.2); eGFR > 60.00
[2023-11-23 17:20] LABS: % Basophils 0.8 % (0-2); % Eosinophils 0.4 % (0-6); % Immature Granulocytes 17.5 % (0-0.5); % Lymphocytes 5.7 % (20.5-51.1); % Monocytes 6.2 % (1.7-9.3); % Neutrophils 69.4 % (42.2-75.2); Absolute Basophils 0.2 10^3/uL (0-0.2); Absolute Eosinophils 0.1 10^3/uL (0-0.7); Absolute Immature Granulocytes 4.3 10^3/uL (0-0.05); Absolute Lymphocytes 1.4 10^3/uL (1.2-3.4); Absolute Monocytes 1.5 10^3/uL (0.1-0.6); Absolute Neutrophils 17.2 10^3/uL (1.4-6.5); Nucleated Red Blood Cells % 0.2 % (-)
== END ==
LOC: OIDL 16:03
PROVIDERS: ATTENDING PHYSICIAN Internal Medicine Hematology & Oncology
DX: C18.7 Malignant neoplasm of sigmoid colon (principal)
CPT/HCPCS: 80053; 85025

== ENCOUNTER → 2023-11-24 11:36 | Outpatient (REF) | payer OTHER, SELFPAY ==
[2023-11-24 11:44] VITALS: BP 115/83; BP_SYST 97
[2023-11-24 12:58] VITALS: BP 118/68; BP_SYST 93
[2023-11-24 13:04] VITALS: BP 118/68
[2023-11-24 13:11] LABS: Body Fluid WBC 824 /CUMM
[2023-11-24 13:57] LABS: Body Fluid Second Tech EF
== END ==
LOC: RADI 11:36
PROVIDERS: ATTENDING PHYSICIAN Internal Medicine Hematology & Oncology
DX: C80.1 Malignant (primary) neoplasm, unspecified (principal); R18.0 Malignant ascites
CPT/HCPCS: 49083; 89051

== ENCOUNTER → 2023-11-30 16:24 | Outpatient (REF) | payer OTHER, SELFPAY ==
[2023-11-30 15:32] LABS: % Basophils 0.2 % (0-2); % Eosinophils 0.1 % (0-6); % Immature Granulocytes 3.2 % (0-0.5); % Lymphocytes 3.1 % (20.5-51.1); % Monocytes 2.8 % (1.7-9.3); % Neutrophils 90.6 % (42.2-75.2); Absolute Basophils 0.1 10^3/uL (0-0.2); Absolute Immature Granulocytes 1.1 10^3/uL (0-0.05); Absolute Monocytes 0.9 10^3/uL (0.1-0.6); Absolute Neutrophils 30.2 10^3/uL (1.4-6.5); Hematocrit 26.3 % (39.0-52.0); Hemoglobin 8.3 g/dL (13.0-18.0); Mean Corp Hgb Conc. 31.6 g/dL (33.0-37.0); Mean Corpuscular Hgb 28.6 pg (27.0-31.0); Mean Corpuscular Volume 90.7 fL (80.0-94.0); Nucleated Red Blood Cells % 0 % (-); Platelet Count 341 10^3/uL (130-400); Red Cell Dist. Width 18.7 % (11.5-14.5); White Blood Cell Count 33.3 10^3/uL (4.8-10.8)
== END ==
LOC: OIDL 16:24
PROVIDERS: ATTENDING PHYSICIAN Internal Medicine Hematology & Oncology
DX: C18.7 Malignant neoplasm of sigmoid colon (principal)
CPT/HCPCS: 85025

== ENCOUNTER → 2023-12-01 10:33 | Outpatient (REF) | payer OTHER, SELFPAY ==
[2023-12-01 10:45] VITALS: BP 129/83; BP_SYST 82
[2023-12-01 11:57] VITALS: BP 113/64; BP_SYST 80
[2023-12-01 14:01] LABS: Body Fluid WBC 963 /CUMM
[2023-12-01 14:03] LABS: Body Fluid Second Tech HB
== END ==
LOC: RADI 10:33
PROVIDERS: ATTENDING PHYSICIAN Internal Medicine Hematology & Oncology
DX: C80.1 Malignant (primary) neoplasm, unspecified (principal); R18.0 Malignant ascites
CPT/HCPCS: 49083; 89051

== ENCOUNTER → 2023-12-02 14:56 | Outpatient (REF) | payer OTHER, SELFPAY ==
[2023-12-02 15:02] LABS: % Basophils 0.2 % (0-2); % Eosinophils 0.1 % (0-6); % Immature Granulocytes 2.3 % (0-0.5); % Monocytes 5.5 % (1.7-9.3); % Neutrophils 87.9 % (42.2-75.2); Absolute Basophils 0.1 10^3/uL (0-0.2); Absolute Immature Granulocytes 0.6 10^3/uL (0-0.05); Absolute Monocytes 1.4 10^3/uL (0.1-0.6); Absolute Neutrophils 22.3 10^3/uL (1.4-6.5); Hematocrit 28.3 % (39.0-52.0); Hemoglobin 8.9 g/dL (13.0-18.0); Mean Corp Hgb Conc. 31.4 g/dL (33.0-37.0); Mean Corpuscular Hgb 29.2 pg (27.0-31.0); Mean Corpuscular Volume 92.8 fL (80.0-94.0); Mean Platelet Volume 9.9 fL (7.4-10.4); Platelet Count 312 10^3/uL (130-400); Red Blood Cell Count 3.05 10^6/uL (4.70-6.10); Red Cell Dist. Width 19.7 % (11.5-14.5); White Blood Cell Count 25.4 10^3/uL (4.8-10.8)
[2023-12-02 16:12] LABS: ALT (SGPT) 36 U/L (0-50); AST (SGOT) 43 U/L (17-59); Alkaline Phosphatase 367 U/L (38-126); Blood Urea Nitrogen 35 mg/dl (9-20); Calcium 8.7 mg/dl (8.4-10.2); Carbon Dioxide 14 mmol/L (22-30); Chloride 107 mmol/L (98-107); Glucose 99 mg/dl (70-99); Potassium 3.8 mmol/L (3.5-5.1); Sodium 138 mmol/L (135-145); Total Bilirubin 0.6 mg/dl (0.2-1.3); Total Protein 5.6 g/dl (6.3-8.2); eGFR > 60.00
== END ==
LOC: OIDL 14:56
PROVIDERS: ATTENDING PHYSICIAN Internal Medicine Hematology & Oncology
DX: C18.7 Malignant neoplasm of sigmoid colon (principal)
CPT/HCPCS: 80053; 85025

== ENCOUNTER → 2023-12-07 14:34 | Outpatient (REF) | payer OTHER, SELFPAY ==
[2023-12-07 19:12] LABS: % Basophils 0.5 % (0-2); % Eosinophils 0.5 % (0-6); % Immature Granulocytes 2.3 % (0-0.5); % Monocytes 5.2 % (1.7-9.3); % Neutrophils 84.5 % (42.2-75.2); Absolute Basophils 0.1 10^3/uL (0-0.2); Absolute Eosinophils 0.1 10^3/uL (0-0.7); Absolute Immature Granulocytes 0.4 10^3/uL (0-0.05); Absolute Lymphocytes 1.1 10^3/uL (1.2-3.4); Absolute Monocytes 0.8 10^3/uL (0.1-0.6); Absolute Neutrophils 13.2 10^3/uL (1.4-6.5); Hematocrit 31.1 % (39.0-52.0); Hemoglobin 9.6 g/dL (13.0-18.0); Mean Corp Hgb Conc. 30.9 g/dL (33.0-37.0); Mean Corpuscular Hgb 30.4 pg (27.0-31.0); Mean Corpuscular Volume 98.4 fL (80.0-94.0); Mean Platelet Volume 11.4 fL (7.4-10.4); Nucleated Red Blood Cells % 0 % (-); Platelet Count 249 10^3/uL (130-400); Red Blood Cell Count 3.16 10^6/uL (4.70-6.10); Red Cell Dist. Width 21.3 % (11.5-14.5); White Blood Cell Count 15.7 10^3/uL (4.8-10.8)
[2023-12-07 19:24] LABS: ALT (SGPT) 24 U/L (0-50); AST (SGOT) 34 U/L (17-59); Albumin 3.2 g/dl (3.5-5.0); Alkaline Phosphatase 311 U/L (38-126); Blood Urea Nitrogen 24 mg/dl (9-20); Calcium 8.8 mg/dl (8.4-10.2); Carbon Dioxide 16 mmol/L (22-30); Chloride 110 mmol/L (98-107); Glucose 58 mg/dl (70-99); Potassium 3.5 mmol/L (3.5-5.1); Sodium 143 mmol/L (135-145); Total Bilirubin 0.5 mg/dl (0.2-1.3); Total Protein 5.9 g/dl (6.3-8.2); eGFR > 60.00
== END ==
LOC: OIDL 14:34
PROVIDERS: ATTENDING PHYSICIAN Internal Medicine Hematology & Oncology
DX: C18.7 Malignant neoplasm of sigmoid colon (principal)
CPT/HCPCS: 36415; 80053; 85025

== ENCOUNTER → 2023-12-08 12:45 | Outpatient (REF) | payer OTHER, SELFPAY ==
[2023-12-08 13:05] VITALS: BP 135/62; BP_SYST 87
[2023-12-08 14:31] VITALS: BP 120/80
[2023-12-08 15:08] LABS: Body Fluid Mononuclear 71.2 %; Body Fluid Polymorphonuclear 28.8 %; Body Fluid WBC 719 /CUMM
[2023-12-08 15:20] LABS: Body Fluid Second Tech DW
== END ==
LOC: RADI 12:45
PROVIDERS: ATTENDING PHYSICIAN Internal Medicine Hematology & Oncology; FAMILY PHYSICIAN Physician Assistant Medical
DX: R18.8 Other ascites (principal)
CPT/HCPCS: 49083; 89051

== ENCOUNTER → 2023-12-21 16:15 | Outpatient (REF) | payer OTHER, SELFPAY ==
[2023-12-21 14:55] LABS: % Basophils 0.6 % (0-2); % Eosinophils 1.8 % (0-6); % Lymphocytes 5.6 % (20.5-51.1); % Monocytes 5.2 % (1.7-9.3); % Neutrophils 84.8 % (42.2-75.2); Absolute Basophils 0.1 10^3/uL (0-0.2); Absolute Eosinophils 0.3 10^3/uL (0-0.7); Absolute Immature Granulocytes 0.4 10^3/uL (0-0.05); Absolute Monocytes 0.9 10^3/uL (0.1-0.6); Absolute Neutrophils 14.8 10^3/uL (1.4-6.5); Hematocrit 32.9 % (39.0-52.0); Hemoglobin 10.4 g/dL (13.0-18.0); Mean Corp Hgb Conc. 31.6 g/dL (33.0-37.0); Mean Corpuscular Hgb 30.6 pg (27.0-31.0); Mean Corpuscular Volume 96.8 fL (80.0-94.0); Mean Platelet Volume 10.6 fL (7.4-10.4); Nucleated Red Blood Cells % 0 % (-); Platelet Count 272 10^3/uL (130-400); Red Cell Dist. Width 20.2 % (11.5-14.5); White Blood Cell Count 17.4 10^3/uL (4.8-10.8)
[2023-12-21 15:10] LABS: ALT (SGPT) 33 U/L (0-50); AST (SGOT) 35 U/L (17-59); Albumin 3.6 g/dl (3.5-5.0); Alkaline Phosphatase 323 U/L (38-126); Blood Urea Nitrogen 14 mg/dl (9-20); Calcium 9.2 mg/dl (8.4-10.2); Carbon Dioxide 16 mmol/L (22-30); Chloride 110 mmol/L (98-107); Glucose 75 mg/dl (70-99); Potassium 3.5 mmol/L (3.5-5.1); Sodium 141 mmol/L (135-145); Total Bilirubin 0.8 mg/dl (0.2-1.3); Total Protein 6.4 g/dl (6.3-8.2); eGFR > 60.00
[2023-12-21 15:24] LABS: Protein/creatinine Ratio 0.7; Urine Protein 60 mg/dl
[2023-12-21 21:50] LABS: CEA 2670 ng/ml
== END ==
LOC: OIDL 16:15
PROVIDERS: ATTENDING PHYSICIAN Internal Medicine Hematology & Oncology
DX: C18.7 Malignant neoplasm of sigmoid colon (principal); Z51.11 Encounter for antineoplastic chemotherapy; E87.6 Hypokalemia; N39.0 Urinary tract infection, site not specified; C79.51 Secondary malignant neoplasm of bone; R18.8 Other ascites; D64.9 Anemia, unspecified; R05.1 Acute cough
CPT/HCPCS: 80053; 82378; 82570; 84156; 85025

== ENCOUNTER → 2023-12-22 08:54 | Outpatient (REF) | payer OTHER, SELFPAY ==
[2023-12-22 09:00] VITALS: BP 125/88; BP_SYST 74
[2023-12-22 09:40] VITALS: BP 123/81; BP_SYST 78
[2023-12-22 10:16] VITALS: BP 123/81
[2023-12-22 11:18] LABS: Body Fluid Mononuclear 67.9 %; Body Fluid Polymorphonuclear 32.1 %; Body Fluid WBC 1019 /CUMM
[2023-12-22 11:31] LABS: Body Fluid Second Tech EF
== END ==
LOC: RADI 08:54
PROVIDERS: ATTENDING PHYSICIAN Internal Medicine Hematology & Oncology; FAMILY PHYSICIAN Physician Assistant Medical
DX: C18.7 Malignant neoplasm of sigmoid colon (principal); R18.0 Malignant ascites
CPT/HCPCS: 49083; 71260; 74177; 89051; Q9967

== ENCOUNTER → 2024-01-04 16:04 | Outpatient (REF) | payer OTHER, SELFPAY ==
[2024-01-04 14:56] LABS: Hematocrit 33.7 % (39.0-52.0); Hemoglobin 10.6 g/dL (13.0-18.0); Mean Corp Hgb Conc. 31.5 g/dL (33.0-37.0); Mean Corpuscular Hgb 29.9 pg (27.0-31.0); Mean Corpuscular Volume 95.2 fL (80.0-94.0); Mean Platelet Volume 10.6 fL (7.4-10.4); Platelet Count 270 10^3/uL (130-400); Red Blood Cell Count 3.54 10^6/uL (4.70-6.10); Red Cell Dist. Width 20.2 % (11.5-14.5)
[2024-01-04 15:13] LABS: % Basophils 0.8 % (0-2); % Eosinophils 1.3 % (0-6); % Lymphocytes 7.3 % (20.5-51.1); % Monocytes 5.4 % (1.7-9.3); % Neutrophils 79.2 % (42.2-75.2); Absolute Basophils 0.1 10^3/uL (0-0.2); Absolute Eosinophils 0.2 10^3/uL (0-0.7); Absolute Immature Granulocytes 0.7 10^3/uL (0-0.05); Absolute Lymphocytes 0.9 10^3/uL (1.2-3.4); Absolute Monocytes 0.7 10^3/uL (0.1-0.6); Absolute Neutrophils 9.5 10^3/uL (1.4-6.5); Nucleated Red Blood Cells % 0 % (-)
[2024-01-04 15:32] LABS: ALT (SGPT) 29 U/L (0-50); AST (SGOT) 28 U/L (17-59); Albumin 3.5 g/dl (3.5-5.0); Alkaline Phosphatase 274 U/L (38-126); Blood Urea Nitrogen 13 mg/dl (9-20); Calcium 7.7 mg/dl (8.4-10.2); Carbon Dioxide 13 mmol/L (22-30); Chloride 114 mmol/L (98-107); Glucose 122 mg/dl (70-99); Potassium 3.4 mmol/L (3.5-5.1); Sodium 142 mmol/L (135-145); Total Bilirubin 0.5 mg/dl (0.2-1.3); Total Protein 6.3 g/dl (6.3-8.2); eGFR > 60.00
== END ==
LOC: OIDL 16:04
PROVIDERS: ATTENDING PHYSICIAN Internal Medicine Hematology & Oncology
DX: C18.7 Malignant neoplasm of sigmoid colon (principal)
CPT/HCPCS: 80053; 85025

== ENCOUNTER → 2024-01-05 08:08 | Outpatient (REF) | payer OTHER, SELFPAY ==
[2024-01-05 09:52] LABS: Body Fluid WBC 621 /CUMM
[2024-01-05 10:19] LABS: Body Fluid Second Tech ASW
== END ==
LOC: RADI 08:08
PROVIDERS: ATTENDING PHYSICIAN Internal Medicine Hematology & Oncology; FAMILY PHYSICIAN Physician Assistant Medical
DX: C80.1 Malignant (primary) neoplasm, unspecified (principal); R18.0 Malignant ascites
CPT/HCPCS: 49083; 89051

== ENCOUNTER 2024-01-18 16:00 | Outpatient (RCR) | payer OTHER, SELFPAY ==
[2024-01-18 14:12] LABS: % Basophils 0.6 % (0-2); % Eosinophils 2.1 % (0-6); % Immature Granulocytes 1.3 % (0-0.5); % Lymphocytes 6.2 % (20.5-51.1); % Monocytes 6.6 % (1.7-9.3); % Neutrophils 83.2 % (42.2-75.2); Absolute Basophils 0.1 10^3/uL (0-0.2); Absolute Eosinophils 0.3 10^3/uL (0-0.7); Absolute Immature Granulocytes 0.2 10^3/uL (0-0.05); Absolute Lymphocytes 0.8 10^3/uL (1.2-3.4); Absolute Monocytes 0.9 10^3/uL (0.1-0.6); Absolute Neutrophils 10.8 10^3/uL (1.4-6.5); Hematocrit 33.7 % (39.0-52.0); Hemoglobin 10.6 g/dL (13.0-18.0); Mean Corp Hgb Conc. 31.5 g/dL (33.0-37.0); Mean Corpuscular Hgb 30.5 pg (27.0-31.0); Mean Corpuscular Volume 96.8 fL (80.0-94.0); Mean Platelet Volume 11.2 fL (7.4-10.4); Nucleated Red Blood Cells % 0 % (-); Platelet Count 208 10^3/uL (130-400); Red Blood Cell Count 3.48 10^6/uL (4.70-6.10); Red Cell Dist. Width 18.7 % (11.5-14.5)
[2024-01-18 14:25] LABS: ALT (SGPT) 33 U/L (0-50); AST (SGOT) 36 U/L (17-59); Albumin 3.3 g/dl (3.5-5.0); Alkaline Phosphatase 272 U/L (38-126); Blood Urea Nitrogen 14 mg/dl (9-20); Calcium 8.6 mg/dl (8.4-10.2); Carbon Dioxide 19 mmol/L (22-30); Chloride 109 mmol/L (98-107); Glucose 98 mg/dl (70-99); Potassium 3.8 mmol/L (3.5-5.1); Sodium 140 mmol/L (135-145); Total Bilirubin 0.7 mg/dl (0.2-1.3); eGFR > 60.00
== END 2024-02-06 23:59 | disposition home or self-care (01) ==
LOC: OID 16:00
PROVIDERS: ATTENDING PHYSICIAN Internal Medicine Hematology & Oncology
DX: C18.7 Malignant neoplasm of sigmoid colon (principal)
CPT/HCPCS: 80053; 85025

== ENCOUNTER → 2024-01-19 12:59 | Outpatient (REF) | payer OTHER, SELFPAY ==
[2024-01-19 13:08] VITALS: BP 120/85; BP_SYST 79
[2024-01-19 13:33] VITALS: BP 117/80; BP_SYST 73
[2024-01-19 13:42] VITALS: BP 117/80
[2024-01-19 14:27] LABS: Body Fluid Mononuclear 68.3 %; Body Fluid Polymorphonuclear 31.7 %; Body Fluid WBC 682 /CUMM
[2024-01-19 14:32] LABS: Body Fluid Second Tech CF
== END ==
LOC: RADI 12:59
PROVIDERS: ATTENDING PHYSICIAN Internal Medicine Hematology & Oncology
DX: R18.8 Other ascites (principal)
CPT/HCPCS: 49083; 89051

== ENCOUNTER → 2024-02-09 10:00 | Outpatient (REF) | payer OTHER, SELFPAY ==
[2024-02-09 10:10] VITALS: BP 124/92; BP_SYST 77
[2024-02-09 11:05] VITALS: BP 123/91
[2024-02-09 12:01] LABS: Body Fluid WBC 543 /CUMM
[2024-02-09 12:05] LABS: % Basophils 0.5 % (0-2); % Eosinophils 3.7 % (0-6); % Immature Granulocytes 1.3 % (0-0.5); % Lymphocytes 5.8 % (20.5-51.1); % Monocytes 7.6 % (1.7-9.3); % Neutrophils 81.1 % (42.2-75.2); Absolute Basophils 0.1 10^3/uL (0-0.2); Absolute Eosinophils 0.5 10^3/uL (0-0.7); Absolute Immature Granulocytes 0.2 10^3/uL (0-0.05); Absolute Lymphocytes 0.8 10^3/uL (1.2-3.4); Hematocrit 36.1 % (39.0-52.0); Hemoglobin 11.3 g/dL (13.0-18.0); Mean Corp Hgb Conc. 31.3 g/dL (33.0-37.0); Mean Corpuscular Volume 99.2 fL (80.0-94.0); Nucleated Red Blood Cells % 0 % (-); Platelet Count 169 10^3/uL (130-400); Red Blood Cell Count 3.64 10^6/uL (4.70-6.10); White Blood Cell Count 13.5 10^3/uL (4.8-10.8)
[2024-02-09 12:07] LABS: Body Fluid Second Tech ASW
[2024-02-09 12:32] LABS: ALT (SGPT) 16 U/L (0-50); AST (SGOT) 26 U/L (17-59); Albumin 3.1 g/dl (3.5-5.0); Alkaline Phosphatase 200 U/L (38-126); Blood Urea Nitrogen 11 mg/dl (9-20); Calcium 7.9 mg/dl (8.4-10.2); Carbon Dioxide 21 mmol/L (22-30); Chloride 110 mmol/L (98-107); Glucose 85 mg/dl (70-99); Potassium 3.8 mmol/L (3.5-5.1); Sodium 143 mmol/L (135-145); Total Bilirubin 0.7 mg/dl (0.2-1.3); eGFR > 60.00
== END ==
LOC: RADI 10:00
PROVIDERS: ATTENDING PHYSICIAN Internal Medicine Hematology & Oncology; FAMILY PHYSICIAN Physician Assistant Medical
DX: C18.7 Malignant neoplasm of sigmoid colon (principal); R18.0 Malignant ascites
CPT/HCPCS: 36415; 49083; 80053; 85025; 89051

== ENCOUNTER → 2024-02-19 09:23 | Outpatient (REF) | payer OTHER, SELFPAY ==
[2024-02-19 09:35] VITALS: BP 131/92; BP_SYST 88
[2024-02-19 10:20] VITALS: BP 111/77; BP_SYST 84
[2024-02-19 10:30] VITALS: BP 111/77
[2024-02-19 11:43] LABS: Body Fluid Mononuclear 59.9 %; Body Fluid Polymorphonuclear 40.1 %; Body Fluid WBC 369 /CUMM
[2024-02-19 12:27] LABS: Body Fluid Second Tech SS
== END ==
LOC: RADI 09:23
PROVIDERS: ATTENDING PHYSICIAN Internal Medicine Hematology & Oncology
DX: R18.8 Other ascites (principal)
CPT/HCPCS: 49083; 89051

== ENCOUNTER → 2024-02-19 15:08 | Outpatient (REF) | payer OTHER, SELFPAY ==
[2024-02-19 12:02] LABS: ALT (SGPT) 21 U/L (0-50); AST (SGOT) 25 U/L (17-59); Albumin 2.7 g/dl (3.5-5.0); Alkaline Phosphatase 252 U/L (38-126); Blood Urea Nitrogen 9 mg/dl (9-20); Calcium 7.3 mg/dl (8.4-10.2); Carbon Dioxide 20 mmol/L (22-30); Chloride 111 mmol/L (98-107); Glucose 91 mg/dl (70-99); Magnesium 2.2 mg/dl (1.6-2.3); Phosphorus 2.4 mg/dl (2.5-4.5); Sodium 138 mmol/L (135-145); Total Bilirubin 0.7 mg/dl (0.2-1.3); Total Protein 5.3 g/dl (6.3-8.2); eGFR > 60.00
== END ==
LOC: OIDL 15:08
PROVIDERS: ATTENDING PHYSICIAN Nurse Practitioner Adult Health
DX: C18.7 Malignant neoplasm of sigmoid colon (principal); Z51.11 Encounter for antineoplastic chemotherapy; E87.6 Hypokalemia; N39.0 Urinary tract infection, site not specified; C79.51 Secondary malignant neoplasm of bone; D64.9 Anemia, unspecified; R18.8 Other ascites; R05.1 Acute cough
CPT/HCPCS: 80053; 83735; 84100

== ENCOUNTER → 2024-02-23 14:51 | Outpatient (REF) | payer OTHER, SELFPAY ==
[2024-02-23 15:32] LABS: % Basophils 0.8 % (0-2); % Eosinophils 3.5 % (0-6); % Immature Granulocytes 1.1 % (0-0.5); % Lymphocytes 5.2 % (20.5-51.1); % Neutrophils 83.4 % (42.2-75.2); Absolute Basophils 0.1 10^3/uL (0-0.2); Absolute Eosinophils 0.5 10^3/uL (0-0.7); Absolute Immature Granulocytes 0.1 10^3/uL (0-0.05); Absolute Lymphocytes 0.7 10^3/uL (1.2-3.4); Absolute Monocytes 0.8 10^3/uL (0.1-0.6); Absolute Neutrophils 10.8 10^3/uL (1.4-6.5); Hematocrit 35.1 % (39.0-52.0); Hemoglobin 10.9 g/dL (13.0-18.0); Mean Corp Hgb Conc. 31.1 g/dL (33.0-37.0); Mean Corpuscular Hgb 29.9 pg (27.0-31.0); Mean Corpuscular Volume 96.4 fL (80.0-94.0); Mean Platelet Volume 10.1 fL (7.4-10.4); Nucleated Red Blood Cells % 0 % (-); Platelet Count 221 10^3/uL (130-400); Red Blood Cell Count 3.64 10^6/uL (4.70-6.10); White Blood Cell Count 12.9 10^3/uL (4.8-10.8)
[2024-02-23 16:00] LABS: ALT (SGPT) 25 U/L (0-50); AST (SGOT) 33 U/L (17-59); Alkaline Phosphatase 267 U/L (38-126); Blood Urea Nitrogen 11 mg/dl (9-20); Calcium 8.5 mg/dl (8.4-10.2); Carbon Dioxide 21 mmol/L (22-30); Chloride 108 mmol/L (98-107); Glucose 98 mg/dl (70-99); Potassium 4.2 mmol/L (3.5-5.1); Sodium 140 mmol/L (135-145); Total Bilirubin 0.5 mg/dl (0.2-1.3); Total Protein 5.7 g/dl (6.3-8.2); eGFR > 60.00
== END ==
LOC: REG 14:51
PROVIDERS: ATTENDING PHYSICIAN Internal Medicine Hematology & Oncology; FAMILY PHYSICIAN Nurse Practitioner Obstetrics & Gynecology
DX: C18.7 Malignant neoplasm of sigmoid colon (principal); Z51.11 Encounter for antineoplastic chemotherapy; E87.6 Hypokalemia; N39.0 Urinary tract infection, site not specified; C79.51 Secondary malignant neoplasm of bone; D64.9 Anemia, unspecified; R18.8 Other ascites; R05.1 Acute cough
CPT/HCPCS: 36415; 80053; 85025

== ENCOUNTER → 2024-02-26 12:47 | Outpatient (REF) | payer OTHER, SELFPAY ==
[2024-02-26 13:00] VITALS: BP 112/86; BP_SYST 74
[2024-02-26 13:37] VITALS: BP 118/75
[2024-02-26 14:02] LABS: Body Fluid Mononuclear 64.3 %; Body Fluid Polymorphonuclear 35.7 %; Body Fluid WBC 313 /CUMM
[2024-02-26 14:14] LABS: Body Fluid Second Tech AP
== END ==
LOC: RADI 12:47
PROVIDERS: ATTENDING PHYSICIAN Internal Medicine Hematology & Oncology; FAMILY PHYSICIAN Physician Assistant Medical
DX: R18.8 Other ascites (principal)
CPT/HCPCS: 49083; 89051

== ENCOUNTER → 2024-03-07 07:41 | Outpatient (REF) | payer OTHER, SELFPAY ==
[2024-03-07 08:00] VITALS: BP 119/87; BP_SYST 87
[2024-03-07 08:40] VITALS: BP 109/81; BP_SYST 81
[2024-03-07 08:46] VITALS: BP 109/81
[2024-03-07 10:34] LABS: Body Fluid Mononuclear 62.8 %; Body Fluid Polymorphonuclear 37.2 %; Body Fluid WBC 344 /CUMM
[2024-03-07 10:57] LABS: Body Fluid Second Tech ASW
== END ==
LOC: RADI 07:41
PROVIDERS: ATTENDING PHYSICIAN Internal Medicine Hematology & Oncology; FAMILY PHYSICIAN Physician Assistant Medical
DX: C80.1 Malignant (primary) neoplasm, unspecified (principal); R18.0 Malignant ascites
CPT/HCPCS: 49083; 89051

== ENCOUNTER → 2024-03-14 08:41 | Outpatient (REF) | payer OTHER, SELFPAY ==
[2024-03-14 08:53] VITALS: BP 126/86; BP_SYST 88
[2024-03-14 10:06] VITALS: BP 112/84
[2024-03-14 10:40] LABS: Hematocrit 34.9 % (39.0-52.0); Hemoglobin 10.9 g/dL (13.0-18.0); Mean Corp Hgb Conc. 31.2 g/dL (33.0-37.0); Mean Corpuscular Hgb 29.9 pg (27.0-31.0); Mean Corpuscular Volume 95.9 fL (80.0-94.0); Mean Platelet Volume 10.3 fL (7.4-10.4); Platelet Count 196 10^3/uL (130-400); Red Blood Cell Count 3.64 10^6/uL (4.70-6.10); Red Cell Dist. Width 17.3 % (11.5-14.5); White Blood Cell Count 11.7 10^3/uL (4.8-10.8)
[2024-03-14 10:42] LABS: Body Fluid Mononuclear 53.7 %; Body Fluid Polymorphonuclear 46.3 %; Body Fluid WBC 356 /CUMM
[2024-03-14 11:15] LABS: Body Fluid Second Tech AMA
[2024-03-14 11:16] LABS: ALT (SGPT) 19 U/L (0-50); AST (SGOT) 30 U/L (17-59); Albumin 2.6 g/dl (3.5-5.0); Alkaline Phosphatase 259 U/L (38-126); Blood Urea Nitrogen 11 mg/dl (9-20); Calcium 7.7 mg/dl (8.4-10.2); Carbon Dioxide 23 mmol/L (22-30); Chloride 110 mmol/L (98-107); Glucose 87 mg/dl (70-99); Potassium 4.2 mmol/L (3.5-5.1); Sodium 139 mmol/L (135-145); Total Bilirubin 0.9 mg/dl (0.2-1.3); Total Protein 5.2 g/dl (6.3-8.2); eGFR > 60.00
[2024-03-14 12:46] LABS: Absolute Neutrophils -Man Diff 9.3 10^3/uL (1.4-6.5); Band Neutrophils 5 % (0-3); Eosinophils 4 % (0-6); Lymphocytes 5 % (20-51); Metamyelocytes 3 % (-); Monocytes 5 % (2-9); Myelocytes 3 % (-); Normal RBC Morphology Yes; Platelets Checked Yes; Segmented Neutrophils 75 % (42-75)
[2024-03-14 12:48] LABS: Total Cells Counted 100
[2024-03-14 12:54] LABS: Protein/creatinine Ratio 0.5; Urine Protein 31 mg/dl
== END ==
LOC: RADI 08:41
PROVIDERS: Physician Assistant; ATTENDING PHYSICIAN Internal Medicine Hematology & Oncology; FAMILY PHYSICIAN Physician Assistant Medical
DX: C18.7 Malignant neoplasm of sigmoid colon (principal); R18.0 Malignant ascites
CPT/HCPCS: 36415; 49083; 80053; 82570; 84156; 85025; 89051

== ENCOUNTER → 2024-03-21 08:37 | Outpatient (REF) | payer OTHER, SELFPAY ==
[2024-03-21 08:52] VITALS: BP 125/87; BP_SYST 82
[2024-03-21 09:55] VITALS: BP 109/75; BP_SYST 89
[2024-03-21 11:08] LABS: Body Fluid Mononuclear 40.9 %; Body Fluid Polymorphonuclear 59.1 %; Body Fluid WBC 320 /CUMM
[2024-03-21 11:35] LABS: Body Fluid Second Tech AMA
== END ==
LOC: RADI 08:37
PROVIDERS: ATTENDING PHYSICIAN Internal Medicine Hematology & Oncology; FAMILY PHYSICIAN Physician Assistant Medical
DX: C80.1 Malignant (primary) neoplasm, unspecified (principal); R18.0 Malignant ascites
CPT/HCPCS: 49083; 89051

== ENCOUNTER → 2024-03-28 08:37 | Outpatient (REF) | payer OTHER, SELFPAY ==
[2024-03-28 08:50] VITALS: BP 133/85; BP_SYST 76
[2024-03-28 10:15] VITALS: BP 115/77
[2024-03-28 10:27] LABS: Body Fluid WBC 298 /CUMM
[2024-03-28 13:03] LABS: Body Fluid Second Tech CMB
== END ==
LOC: RADI 08:37
PROVIDERS: ATTENDING PHYSICIAN Internal Medicine Hematology & Oncology
DX: C80.1 Malignant (primary) neoplasm, unspecified (principal); R18.0 Malignant ascites
CPT/HCPCS: 49083; 89051

== ENCOUNTER → 2024-04-01 13:58 | Outpatient (REF) | payer OTHER, SELFPAY ==
[2024-04-01 14:43] LABS: % Basophils 0.7 % (0-2); % Eosinophils 5.1 % (0-6); % Immature Granulocytes 2.6 % (0-0.5); % Lymphocytes 5.9 % (20.5-51.1); % Monocytes 5.4 % (1.7-9.3); % Neutrophils 80.3 % (42.2-75.2); Absolute Basophils 0.1 10^3/uL (0-0.2); Absolute Eosinophils 0.9 10^3/uL (0-0.7); Absolute Immature Granulocytes 0.5 10^3/uL (0-0.05); Absolute Lymphocytes 1.1 10^3/uL (1.2-3.4); Absolute Neutrophils 14.9 10^3/uL (1.4-6.5); Hematocrit 37.8 % (39.0-52.0); Hemoglobin 11.5 g/dL (13.0-18.0); Mean Corp Hgb Conc. 30.4 g/dL (33.0-37.0); Mean Corpuscular Hgb 29.3 pg (27.0-31.0); Mean Corpuscular Volume 96.4 fL (80.0-94.0); Mean Platelet Volume 10.1 fL (7.4-10.4); Nucleated Red Blood Cells % 0 % (-); Platelet Count 284 10^3/uL (130-400); Red Blood Cell Count 3.92 10^6/uL (4.70-6.10); Red Cell Dist. Width 17.2 % (11.5-14.5); White Blood Cell Count 18.6 10^3/uL (4.8-10.8)
[2024-04-01 15:19] LABS: ALT (SGPT) 24 U/L (0-50); AST (SGOT) 38 U/L (17-59); Albumin 2.8 g/dl (3.5-5.0); Alkaline Phosphatase 375 U/L (38-126); Blood Urea Nitrogen 13 mg/dl (9-20); Calcium 7.5 mg/dl (8.4-10.2); Carbon Dioxide 22 mmol/L (22-30); Chloride 107 mmol/L (98-107); Glucose 91 mg/dl (70-99); Potassium 4.4 mmol/L (3.5-5.1); Sodium 138 mmol/L (135-145); Total Bilirubin 0.6 mg/dl (0.2-1.3); Total Protein 5.6 g/dl (6.3-8.2); eGFR > 60.00
[2024-04-01 15:20] LABS: Protein/creatinine Ratio 0.3; Urine Protein 27 mg/dl
== END ==
LOC: REG 13:58
PROVIDERS: ATTENDING PHYSICIAN Internal Medicine Hematology & Oncology; FAMILY PHYSICIAN Physician Assistant Medical
DX: C18.7 Malignant neoplasm of sigmoid colon (principal); Z51.11 Encounter for antineoplastic chemotherapy; E87.6 Hypokalemia; N39.0 Urinary tract infection, site not specified; C79.51 Secondary malignant neoplasm of bone; D64.9 Anemia, unspecified; R18.8 Other ascites; R05.1 Acute cough
CPT/HCPCS: 36415; 80053; 82570; 84156; 85025

== ENCOUNTER → 2024-04-04 07:40 | Outpatient (REF) | payer OTHER, SELFPAY ==
[2024-04-04 08:00] VITALS: BP 122/100; BP_SYST 84
[2024-04-04 09:00] VITALS: BP 121/84; BP_SYST 82
[2024-04-04 10:13] LABS: Body Fluid Mononuclear 62.2 %; Body Fluid Polymorphonuclear 37.8 %; Body Fluid WBC 281 /CUMM
[2024-04-04 10:27] LABS: Body Fluid Second Tech EM
== END ==
LOC: RADI 07:40
PROVIDERS: ATTENDING PHYSICIAN Internal Medicine Hematology & Oncology; FAMILY PHYSICIAN Physician Assistant Medical
DX: C80.1 Malignant (primary) neoplasm, unspecified (principal); R18.0 Malignant ascites
CPT/HCPCS: 49083; 71260; 74177; 89051; Q9967

== ENCOUNTER → 2024-04-11 08:31 | Outpatient (REF) | payer OTHER, SELFPAY ==
[2024-04-11 08:45] VITALS: BP 126/94; BP_SYST 89
[2024-04-11 11:39] LABS: Body Fluid Mononuclear 42.9 %; Body Fluid Polymorphonuclear 57.1 %; Body Fluid WBC 226 /CUMM
[2024-04-11 12:12] LABS: Body Fluid Second Tech AMA
== END ==
LOC: RADI 08:31
PROVIDERS: ATTENDING PHYSICIAN Internal Medicine Hematology & Oncology; FAMILY PHYSICIAN Physician Assistant Medical
DX: C80.1 Malignant (primary) neoplasm, unspecified (principal); R18.0 Malignant ascites
CPT/HCPCS: 49083; 89051

== ENCOUNTER → 2024-04-14 09:13 | Outpatient (REF) | payer OTHER, SELFPAY ==
[2024-04-14 09:29] VITALS: BP 113/89; BP_SYST 92
[2024-04-14 10:12] VITALS: BP 108/79; BP_SYST 86
[2024-04-14 10:57] LABS: Body Fluid Mononuclear 66.3 %; Body Fluid Polymorphonuclear 33.7 %; Body Fluid WBC 157 /CUMM
[2024-04-14 11:06] LABS: Body Fluid Second Tech AMA
== END ==
LOC: RADI 09:13
PROVIDERS: ATTENDING PHYSICIAN Internal Medicine Hematology & Oncology; FAMILY PHYSICIAN Physician Assistant Medical
DX: C80.1 Malignant (primary) neoplasm, unspecified (principal); R18.0 Malignant ascites
CPT/HCPCS: 49083; 89051

== ENCOUNTER → 2024-04-18 08:28 | Outpatient (REF) | payer OTHER, SELFPAY ==
[2024-04-18 08:41] VITALS: BP 118/89; BP_SYST 87
[2024-04-18 09:51] VITALS: BP 102/82; BP_SYST 81
[2024-04-18 10:48] LABS: Hematocrit 33.5 % (39.0-52.0); Hemoglobin 10.1 g/dL (13.0-18.0); Mean Corp Hgb Conc. 30.1 g/dL (33.0-37.0); Mean Corpuscular Volume 96.3 fL (80.0-94.0); Mean Platelet Volume 10.2 fL (7.4-10.4); Platelet Count 269 10^3/uL (130-400); Red Blood Cell Count 3.48 10^6/uL (4.70-6.10); Red Cell Dist. Width 17.8 % (11.5-14.5)
[2024-04-18 10:52] LABS: Body Fluid Mononuclear 63.3 %; Body Fluid Polymorphonuclear 36.7 %; Body Fluid WBC 344 /CUMM
[2024-04-18 10:54] LABS: Body Fluid Second Tech CF
[2024-04-18 11:09] LABS: Absolute Neutrophils -Man Diff 12.6 10^3/uL (1.4-6.5); Band Neutrophils 12 % (0-3); Eosinophils 5 % (0-6); Lymphocytes 4 % (20-51); Metamyelocytes 1 % (-); Monocytes 6 % (2-9); Segmented Neutrophils 72 % (42-75)
[2024-04-18 11:10] LABS: Normal RBC Morphology Yes; Platelets Checked Yes; Total Cells Counted 100
[2024-04-18 11:20] LABS: ALT (SGPT) 20 U/L (0-50); AST (SGOT) 38 U/L (17-59); Albumin 2.7 g/dl (3.5-5.0); Alkaline Phosphatase 536 U/L (38-126); Blood Urea Nitrogen 12 mg/dl (9-20); Carbon Dioxide 24 mmol/L (22-30); Chloride 104 mmol/L (98-107); Glucose 77 mg/dl (70-99); Potassium 4.2 mmol/L (3.5-5.1); Sodium 135 mmol/L (135-145); Total Bilirubin 0.8 mg/dl (0.2-1.3); Total Protein 5.1 g/dl (6.3-8.2); eGFR > 60.00
== END ==
LOC: RADI 08:28
PROVIDERS: ATTENDING PHYSICIAN Internal Medicine Hematology & Oncology; FAMILY PHYSICIAN Physician Assistant Medical
DX: R18.8 Other ascites (principal)
CPT/HCPCS: 36415; 49083; 80053; 85025; 89051

== ENCOUNTER → 2024-04-22 08:55 | Outpatient (REF) | payer OTHER, SELFPAY ==
[2024-04-22 09:19] VITALS: BP 116/64; BP_SYST 100
[2024-04-22 10:30] VITALS: BP 96/74
[2024-04-22 11:40] LABS: Body Fluid Mononuclear 84.6 %; Body Fluid Polymorphonuclear 15.4 %; Body Fluid WBC 111 /CUMM
[2024-04-22 12:11] LABS: Body Fluid Second Tech HB
== END ==
LOC: RADI 08:55
PROVIDERS: ATTENDING PHYSICIAN Internal Medicine Hematology & Oncology
DX: R18.8 Other ascites (principal); Z85.038 Personal history of other malignant neoplasm of large intestine
CPT/HCPCS: 49083; 89051

== ENCOUNTER → 2024-04-26 07:05 | Outpatient (REF) | payer OTHER, SELFPAY ==
[2024-04-26 07:20] VITALS: BP 102/76; BP_SYST 84
[2024-04-26 08:04] VITALS: BP 104/70
[2024-04-26 08:49] LABS: Body Fluid Mononuclear 79.4 %; Body Fluid Polymorphonuclear 20.6 %; Body Fluid WBC 102 /CUMM
[2024-04-26 08:50] LABS: Body Fluid Second Tech EM
== END ==
LOC: RADI 07:05
PROVIDERS: ATTENDING PHYSICIAN Internal Medicine Hematology & Oncology; FAMILY PHYSICIAN Physician Assistant Medical
DX: C80.1 Malignant (primary) neoplasm, unspecified (principal); R18.0 Malignant ascites
CPT/HCPCS: 49083; 89051

== ENCOUNTER → 2024-05-02 07:27 | Outpatient (REF) | payer OTHER, SELFPAY ==
[2024-05-02 07:35] VITALS: BP 117/65; BP_SYST 85
[2024-05-02 08:19] VITALS: BP 101/78; BP_SYST 80
[2024-05-02 08:24] VITALS: BP 101/78
[2024-05-02 09:20] LABS: Body Fluid WBC 148 /CUMM
[2024-05-02 09:21] LABS: Body Fluid Mononuclear 73.6 %; Body Fluid Polymorphonuclear 26.4 %
[2024-05-02 09:25] LABS: Body Fluid Second Tech EM
== END ==
LOC: RADI 07:27
PROVIDERS: ATTENDING PHYSICIAN Internal Medicine Hematology & Oncology; FAMILY PHYSICIAN Physician Assistant Medical
DX: C80.1 Malignant (primary) neoplasm, unspecified (principal); R18.0 Malignant ascites
CPT/HCPCS: 49083; 89051

== ENCOUNTER → 2024-05-09 07:05 | Outpatient (REF) | payer OTHER, SELFPAY ==
[2024-05-09 07:30] VITALS: BP 115/80; BP_SYST 81
[2024-05-09 08:15] VITALS: BP 111/76; BP_SYST 90
[2024-05-09 08:28] VITALS: BP 111/76
[2024-05-09 09:34] LABS: Hematocrit 31.4 % (39.0-52.0); Mean Corp Hgb Conc. 31.8 g/dL (33.0-37.0); Mean Corpuscular Hgb 30.3 pg (27.0-31.0); Mean Corpuscular Volume 95.2 fL (80.0-94.0); Mean Platelet Volume 10.2 fL (7.4-10.4); Platelet Count 259 10^3/uL (130-400); Red Cell Dist. Width 18.3 % (11.5-14.5); White Blood Cell Count 6.6 10^3/uL (4.8-10.8)
[2024-05-09 09:55] LABS: % Basophils 1.2 % (0-2); % Eosinophils 1.5 % (0-6); % Immature Granulocytes 6.5 % (0-0.5); % Lymphocytes 7.9 % (20.5-51.1); % Neutrophils 65.9 % (42.2-75.2); Absolute Basophils 0.1 10^3/uL (0-0.2); Absolute Eosinophils 0.1 10^3/uL (0-0.7); Absolute Immature Granulocytes 0.4 10^3/uL (0-0.05); Absolute Lymphocytes 0.5 10^3/uL (1.2-3.4); Absolute Monocytes 1.1 10^3/uL (0.1-0.6); Absolute Neutrophils 4.3 10^3/uL (1.4-6.5); Nucleated Red Blood Cells % 0 % (-)
[2024-05-09 10:02] LABS: ALT (SGPT) 27 U/L (0-50); AST (SGOT) 38 U/L (17-59); Albumin 2.7 g/dl (3.5-5.0); Alkaline Phosphatase 468 U/L (38-126); Blood Urea Nitrogen 18 mg/dl (9-20); Calcium 8.4 mg/dl (8.4-10.2); Carbon Dioxide 20 mmol/L (22-30); Chloride 107 mmol/L (98-107); Glucose 85 mg/dl (70-99); Magnesium 2.2 mg/dl (1.6-2.3); Potassium 4.9 mmol/L (3.5-5.1); Sodium 136 mmol/L (135-145); Total Bilirubin 1.4 mg/dl (0.2-1.3); Total Protein 5.4 g/dl (6.3-8.2); eGFR > 60.00
[2024-05-09 10:10] LABS: Protein/creatinine Ratio 0.2; Urine Protein 34 mg/dl
[2024-05-09 10:52] LABS: Body Fluid WBC 212 /CUMM
[2024-05-09 11:03] LABS: Body Fluid Second Tech EM
[2024-05-09 11:12] LABS: CEA 2290 ng/ml
== END ==
LOC: RADI 07:05
PROVIDERS: ATTENDING PHYSICIAN Internal Medicine Hematology & Oncology; FAMILY PHYSICIAN Physician Assistant Medical
DX: C80.1 Malignant (primary) neoplasm, unspecified (principal); R18.0 Malignant ascites
CPT/HCPCS: 36415; 49083; 80053; 82378; 82570; 83735; 84156; 85025; 89051

== ENCOUNTER → 2024-05-13 07:12 | Outpatient (REF) | payer OTHER, SELFPAY ==
[2024-05-13 07:25] VITALS: BP 104/82; BP_SYST 92
[2024-05-13 08:35] VITALS: BP 101/70; BP_SYST 88
[2024-05-13 08:39] VITALS: BP 101/70
[2024-05-13 10:13] LABS: Body Fluid Mononuclear 58.8 %; Body Fluid Polymorphonuclear 41.2 %; Body Fluid WBC 267 /CUMM
[2024-05-13 10:57] LABS: Body Fluid Second Tech AMA
== END ==
LOC: RADI 07:12
PROVIDERS: ATTENDING PHYSICIAN Internal Medicine Hematology & Oncology
DX: R18.8 Other ascites (principal); Z85.038 Personal history of other malignant neoplasm of large intestine
CPT/HCPCS: 49083; 89051

== ENCOUNTER → 2024-05-17 09:04 | Outpatient (REF) | payer OTHER, SELFPAY ==
[2024-05-17 09:15] VITALS: BP 112/92; BP_SYST 101
[2024-05-17 09:55] VITALS: BP 115/75; BP_SYST 92
[2024-05-17 10:05] VITALS: BP 115/75
[2024-05-17 11:14] LABS: Body Fluid Mononuclear 48.9 %; Body Fluid Polymorphonuclear 51.1 %; Body Fluid WBC 321 /CUMM
[2024-05-17 11:43] LABS: Body Fluid Second Tech EF
== END ==
LOC: RADI 09:04
PROVIDERS: ATTENDING PHYSICIAN Internal Medicine Hematology & Oncology; FAMILY PHYSICIAN Physician Assistant Medical
DX: C80.1 Malignant (primary) neoplasm, unspecified (principal); R18.0 Malignant ascites
CPT/HCPCS: 49083; 89051

== ENCOUNTER → 2024-05-23 09:06 | Outpatient (REF) | payer OTHER, SELFPAY ==
[2024-05-23 09:15] VITALS: BP 128/88; BP_SYST 96
[2024-05-23 09:57] VITALS: BP 104/76
[2024-05-23 10:56] LABS: % Basophils 0.7 % (0-2); % Eosinophils 1.7 % (0-6); % Immature Granulocytes 1.7 % (0-0.5); % Lymphocytes 6.7 % (20.5-51.1); % Monocytes 5.9 % (1.7-9.3); % Neutrophils 83.3 % (42.2-75.2); Absolute Basophils 0.1 10^3/uL (0-0.2); Absolute Eosinophils 0.2 10^3/uL (0-0.7); Absolute Immature Granulocytes 0.2 10^3/uL (0-0.05); Absolute Lymphocytes 0.9 10^3/uL (1.2-3.4); Absolute Monocytes 0.8 10^3/uL (0.1-0.6); Absolute Neutrophils 10.9 10^3/uL (1.4-6.5); Hematocrit 30.8 % (39.0-52.0); Hemoglobin 9.4 g/dL (13.0-18.0); Mean Corp Hgb Conc. 30.5 g/dL (33.0-37.0); Mean Corpuscular Hgb 29.7 pg (27.0-31.0); Mean Corpuscular Volume 97.5 fL (80.0-94.0); Mean Platelet Volume 10.2 fL (7.4-10.4); Nucleated Red Blood Cells % 0 % (-); Platelet Count 260 10^3/uL (130-400); Red Blood Cell Count 3.16 10^6/uL (4.70-6.10); Red Cell Dist. Width 18.5 % (11.5-14.5)
[2024-05-23 11:25] LABS: ALT (SGPT) 21 U/L (0-50); AST (SGOT) 34 U/L (17-59); Albumin 2.6 g/dl (3.5-5.0); Alkaline Phosphatase 537 U/L (38-126); Blood Urea Nitrogen 15 mg/dl (9-20); Calcium 7.9 mg/dl (8.4-10.2); Carbon Dioxide 19 mmol/L (22-30); Chloride 108 mmol/L (98-107); Glucose 90 mg/dl (70-99); Magnesium 2.1 mg/dl (1.6-2.3); Potassium 4.2 mmol/L (3.5-5.1); Sodium 135 mmol/L (135-145); Total Bilirubin 0.8 mg/dl (0.2-1.3); Total Protein 5.2 g/dl (6.3-8.2); eGFR > 60.00
[2024-05-23 11:42] LABS: Protein/creatinine Ratio 0.2; Urine Protein 34 mg/dl
[2024-05-23 11:46] LABS: Body Fluid Mononuclear 57.4 %; Body Fluid Polymorphonuclear 42.6 %; Body Fluid WBC 188 /CUMM
[2024-05-23 12:13] LABS: Body Fluid Second Tech RLT
== END ==
LOC: RADI 09:06
PROVIDERS: ATTENDING PHYSICIAN Internal Medicine Hematology & Oncology; FAMILY PHYSICIAN Physician Assistant Medical
DX: C80.1 Malignant (primary) neoplasm, unspecified (principal); R18.0 Malignant ascites
CPT/HCPCS: 36415; 49083; 80053; 82570; 83735; 84156; 85025; 89051

== ENCOUNTER → 2024-05-27 09:28 | Outpatient (REF) | payer OTHER, SELFPAY ==
[2024-05-27 09:45] VITALS: BP 115/82; BP_SYST 91
[2024-05-27 10:53] VITALS: BP 105/69; BP_SYST 86
[2024-05-27 10:54] VITALS: BP 108/72
[2024-05-27 11:56] LABS: Body Fluid WBC 141 /CUMM
[2024-05-27 11:58] LABS: Body Fluid Second Tech EM
== END ==
LOC: RADI 09:28
PROVIDERS: ATTENDING PHYSICIAN Internal Medicine Hematology & Oncology; FAMILY PHYSICIAN Physician Assistant Medical
DX: C80.1 Malignant (primary) neoplasm, unspecified (principal); R18.0 Malignant ascites
CPT/HCPCS: 49083; 87015; 87070; 87205; 89051

== ENCOUNTER → 2024-06-02 07:26 | Outpatient (REF) | payer OTHER, SELFPAY ==
[2024-06-02 07:40] VITALS: BP 111/77; BP_SYST 88
[2024-06-02 08:30] VITALS: BP 105/76
[2024-06-02 10:25] LABS: Body Fluid WBC 224 /CUMM
[2024-06-02 10:26] LABS: Body Fluid Mononuclear 62.5 %; Body Fluid Polymorphonuclear 37.5 %
[2024-06-02 10:34] LABS: Body Fluid Second Tech HB
== END ==
LOC: RADI 07:26
PROVIDERS: ATTENDING PHYSICIAN Internal Medicine Hematology & Oncology
DX: C80.1 Malignant (primary) neoplasm, unspecified (principal); R18.0 Malignant ascites
CPT/HCPCS: 49083; 89051

== ENCOUNTER → 2024-06-08 08:31 | Outpatient (REF) | payer OTHER, SELFPAY ==
[2024-06-08 08:41] VITALS: BP 117/84; BP_SYST 88
[2024-06-08 09:30] VITALS: BP 110/80
[2024-06-08 11:36] LABS: Body Fluid Mononuclear 56.1 %; Body Fluid Polymorphonuclear 43.9 %; Body Fluid WBC 198 /CUMM
[2024-06-08 11:42] LABS: Body Fluid Second Tech EF
== END ==
LOC: RADI 08:31
PROVIDERS: ATTENDING PHYSICIAN Internal Medicine Hematology & Oncology; FAMILY PHYSICIAN Physician Assistant Medical
DX: R18.8 Other ascites (principal)
CPT/HCPCS: 49083; 89051

== ENCOUNTER → 2024-06-13 09:59 | Outpatient (REF) | payer OTHER, SELFPAY ==
[2024-06-13 10:05] VITALS: BP 111/90; BP_SYST 98
[2024-06-13 11:11] VITALS: BP 109/80; BP_SYST 88
[2024-06-13 11:16] VITALS: BP 109/80
[2024-06-13 12:13] LABS: Body Fluid Mononuclear 62.9 %; Body Fluid Polymorphonuclear 37.1 %; Body Fluid WBC 159 /CUMM
[2024-06-13 12:17] LABS: Body Fluid Second Tech EM
[2024-06-13 12:31] LABS: % Basophils 0.9 % (0-2); % Eosinophils 0.9 % (0-6); % Immature Granulocytes 3.8 % (0-0.5); % Lymphocytes 5.4 % (20.5-51.1); % Monocytes 5.9 % (1.7-9.3); % Neutrophils 83.1 % (42.2-75.2); Absolute Basophils 0.2 10^3/uL (0-0.2); Absolute Eosinophils 0.2 10^3/uL (0-0.7); Absolute Immature Granulocytes 0.8 10^3/uL (0-0.05); Absolute Lymphocytes 1.1 10^3/uL (1.2-3.4); Absolute Monocytes 1.2 10^3/uL (0.1-0.6); Absolute Neutrophils 16.7 10^3/uL (1.4-6.5); Hematocrit 36.5 % (39.0-52.0); Hemoglobin 11.4 g/dL (13.0-18.0); Mean Corp Hgb Conc. 31.2 g/dL (33.0-37.0); Mean Corpuscular Hgb 30.2 pg (27.0-31.0); Mean Corpuscular Volume 96.8 fL (80.0-94.0); Mean Platelet Volume 10.1 fL (7.4-10.4); Nucleated Red Blood Cells % 0 % (-); Platelet Count 286 10^3/uL (130-400); Red Blood Cell Count 3.77 10^6/uL (4.70-6.10); Red Cell Dist. Width 18.3 % (11.5-14.5); White Blood Cell Count 20.1 10^3/uL (4.8-10.8)
[2024-06-13 12:54] LABS: ALT (SGPT) 25 U/L (0-50); AST (SGOT) 46 U/L (17-59); Albumin 2.7 g/dl (3.5-5.0); Alkaline Phosphatase 1040 U/L (38-126); Blood Urea Nitrogen 16 mg/dl (9-20); Calcium 7.6 mg/dl (8.4-10.2); Carbon Dioxide 19 mmol/L (22-30); Chloride 111 mmol/L (98-107); Glucose 89 mg/dl (70-99); Magnesium 2.1 mg/dl (1.6-2.3); Potassium 4.8 mmol/L (3.5-5.1); Sodium 138 mmol/L (135-145); Total Protein 5.5 g/dl (6.3-8.2); eGFR > 60.00
[2024-06-13 13:07] LABS: Protein/creatinine Ratio 0.2; Urine Protein 41 mg/dl
== END ==
LOC: RADI 09:59
PROVIDERS: ATTENDING PHYSICIAN Internal Medicine Hematology & Oncology; FAMILY PHYSICIAN Physician Assistant Medical
DX: C80.1 Malignant (primary) neoplasm, unspecified (principal); R18.0 Malignant ascites
CPT/HCPCS: 36415; 49083; 80053; 82570; 83735; 84156; 85025; 89051

== ENCOUNTER → 2024-06-17 10:09 | Outpatient (REF) | payer OTHER, SELFPAY ==
[2024-06-17 10:18] VITALS: BP 114/82; BP_SYST 93
[2024-06-17 11:10] VITALS: BP 99/80; BP_SYST 88
[2024-06-17 11:23] VITALS: BP 99/80
[2024-06-17 12:39] LABS: Body Fluid Mononuclear 74.7 %; Body Fluid Polymorphonuclear 25.3 %; Body Fluid WBC 142 /CUMM
[2024-06-17 12:40] LABS: Body Fluid Second Tech EM
== END ==
LOC: RADI 10:09
PROVIDERS: ATTENDING PHYSICIAN Internal Medicine Hematology & Oncology; FAMILY PHYSICIAN Physician Assistant Medical
DX: C80.1 Malignant (primary) neoplasm, unspecified (principal); R18.0 Malignant ascites
CPT/HCPCS: 49083; 89051

== ENCOUNTER → 2024-06-24 10:34 | Outpatient (REF) | payer OTHER, SELFPAY ==
[2024-06-24 11:02] LABS: INR 1.11; PT 14.6 Sec (11.4-14.6)
[2024-06-24 11:10] VITALS: BP 101/71; BP_SYST 94
[2024-06-24] MEDS: ANCEF 10 IV (11:40)
[2024-06-24 12:49] VITALS: BP 108/77; BP_SYST 87
[2024-06-24 13:00] VITALS: BP 98/76
== END ==
LOC: RADI 10:34
PROVIDERS: ATTENDING PHYSICIAN Internal Medicine Hematology & Oncology; FAMILY PHYSICIAN Physician Assistant Medical; REFERRING PHYSICIAN Physician Assistant
DX: R18.8 Other ascites (principal); C18.7 Malignant neoplasm of sigmoid colon
CPT/HCPCS: 36415; 49418; 85610; 99152; 99153; C1729; C1769